=== PATIENT | female | born 1940 | race Caucasian/White ===

== ENCOUNTER → 2019-05-19 15:14 | Outpatient (CLI) | payer MEDICARE, OTHER, SELFPAY ==
--- NOTE | 2019-05-19 15:19 | DI.RAD.S_ITS ---
PROCEDURE: XR CHEST 2V INDICATIONS: Coughing x6 week TECHNIQUE: 2 views of the chest were acquired. COMPARISON: None. FINDINGS: Surgical changes and devices: None. Lungs and pleura: Increased bronchovascular markings and bilateral hilar region are seen with bronchial wall thickening suggestive of reactive airway disease. No focal infiltrate. No pleural effusions or pneumothorax. Mediastinum: Mediastinal contours are normal. Heart size is normal. Bones and chest wall: No suspicious bony abnormalities. Soft tissues appear unremarkable. IMPRESSION: Suggestion of reactive airway disease. No focal infiltrate, pleural effusion or pneumothorax. Dictated by: Messi Cohen M.D. on 05/19/2019 at 16:22 Approved by: Messi Cohen M.D. on 05/19/2019 at 16:23
== END ==
PROVIDERS: Visit Provider Nurse Practitioner
DX: R05 Cough (principal); R06.2 Wheezing
CPT/HCPCS: 71046

== ENCOUNTER → 2020-08-03 12:43 | Outpatient (CLI) | payer MEDICARE, OTHER, SELFPAY ==
[2020-08-03 13:56] LABS: Alanine Aminotransferase 22 IU/L (<35); Albumin 4.3 g/dL (3.5-5.0); Albumin Globulin Ratio 1.3 (1.0-2.8); Alkaline Phosphatase 129 U/L (38-126); Aspartate Aminotransferase 44 IU/L (14-36); BUN Creatinine Ratio 26.5 (6-22); Bilirubin Total 0.9 mg/dL (0.2-1.3); Blood Urea Nitrogen 18 mg/dL (7-17); Calcium 9.7 mg/dL (8.4-10.2); Carbon Dioxide 29 mmol/L (22-32); Chloride 102 mmol/L (98-107); Cholesterol 136 mg/dL (140-199); Estimated Glomerular Filt Rate > 60.0 mL/min (>60); Globulin 3.3 g/dL (1.7-4.1); Glucose 91 mg/dL (80-110); HDL Cholesterol 73 mg/dL (40-60); HEMOLYSIS < 15 (0-50); LDL Cholesterol Calculated 51 mg/dL (<100); Sodium 137 mmol/L (137-145); Total Protein 7.6 g/dL (6.3-8.2); Triglycerides 62 mg/dL (35-150)
== END ==
PROVIDERS: PCP Nurse Practitioner; Referring Provider Nurse Practitioner; Visit Provider Nurse Practitioner
DX: M81.0 Age-related osteoporosis without current pathological fracture (principal); Z78.0 Asymptomatic menopausal state; G45.9 Transient cerebral ischemic attack, unspecified; Z87.81 Personal history of (healed) traumatic fracture; R54 Age-related physical debility; Z79.899 Other long term (current) drug therapy; Z90.722 Acquired absence of ovaries, bilateral; Z87.891 Personal history of nicotine dependence
CPT/HCPCS: 36415; 77080; 80053; 80061

== ENCOUNTER → 2020-08-10 12:42 | Outpatient (CLI) | payer MEDICARE, OTHER, SELFPAY ==
[2020-08-10 13:35] LABS: Alanine Aminotransferase 20 IU/L (<35); Albumin 4.2 g/dL (3.5-5.0); Albumin Globulin Ratio 1.3 (1.0-2.8); Alkaline Phosphatase 140 U/L (38-126); Aspartate Aminotransferase 37 IU/L (14-36); Bilirubin Total 0.5 mg/dL (0.2-1.3); Bilirubin Unconjugated 0.5 mg/dL (0.0-1.1); Globulin 3.3 g/dL (1.7-4.1); HEMOLYSIS < 15 (0-50); Total Protein 7.5 g/dL (6.3-8.2)
[2020-08-11 06:55] LABS: HBsAg Screen Negative (Negative); Hepatitis A Antibody IgM Negative (Negative); Hepatitis B Core Antibody IgM Negative (Negative); Hepatitis C Antibody 0.1 s/co ratio (0.0-0.9)
== END ==
PROVIDERS: PCP Nurse Practitioner; Referring Provider Nurse Practitioner; Visit Provider Nurse Practitioner
DX: R79.89 Other specified abnormal findings of blood chemistry (principal)
CPT/HCPCS: 36415; 80074; 80076

== ENCOUNTER → 2020-10-06 14:16 | Outpatient (CLI) | payer MEDICARE, OTHER, SELFPAY ==
[2020-10-06 15:37] LABS: Appearance Urine UA SL CLOUDY; Bilirubin Urine UA NEGATIVE (NEGATIVE); Color Urine UA YELLOW; Glucose Urine UA NEGATIVE (Negative); Ketones Urine UA NEGATIVE (NEGATIVE); Leukocyte Esterase Urine UA 3+ (NEGATIVE); Nitrite Urine UA POSITIVE (Negative); Occult Blood Urine UA TRACE-LYSED (Negative); Protein Urine UA NEGATIVE (Negative); Specific Gravity Urine UA <=1.005 (1.000-1.035); Urobilinogen Urine UA 0.2 E.U./dL (0.2)
[2020-10-06 15:42] LABS: pH Urine UA 6.5 (4.5-8.0)
[2020-10-06 15:56] LABS: Bacteria Urine Many (>30); Culture Indicated Urine Specimen Cultured; RBC Urine 1-5/HPF (0-5/HPF); Squamous Epithelial Cell Urine 0-1 /HPF (0-5/HPF); WBC Urine 30-100/HPF (0-5/HPF)
== END ==
PROVIDERS: PCP Nurse Practitioner; Referring Provider Nurse Practitioner; Visit Provider Nurse Practitioner
DX: N39.0 Urinary tract infection, site not specified (principal)
CPT/HCPCS: 81001; 87077; 87086; 87186

== ENCOUNTER → 2020-11-02 13:58 | Outpatient (CLI) | payer MEDICARE, OTHER, SELFPAY ==
[2020-11-02 14:10] LABS: RBC Urine None Seen (0-5/HPF)
[2020-11-02 14:27] LABS: Appearance Urine UA CLEAR; Bilirubin Urine UA NEGATIVE (NEGATIVE); Color Urine UA YELLOW; Glucose Urine UA NEGATIVE (Negative); Ketones Urine UA NEGATIVE (NEGATIVE); Leukocyte Esterase Urine UA NEGATIVE (NEGATIVE); Nitrite Urine UA NEGATIVE (Negative); Occult Blood Urine UA NEGATIVE (Negative); Protein Urine UA NEGATIVE (Negative); Specific Gravity Urine UA 1.015 (1.000-1.035); Urobilinogen Urine UA 0.2 E.U./dL (0.2)
[2020-11-02 14:43] LABS: Amorphous Sediment Urine 1+; Bacteria Urine Occasional (0-1); Culture Indicated Urine Cult Not Indicated; Squamous Epithelial Cell Urine 1-5 /HPF (0-5/HPF); WBC Urine 0-1/HPF (0-5/HPF); pH Urine UA 7.5 (4.5-8.0)
== END ==
PROVIDERS: PCP Nurse Practitioner; Referring Provider Nurse Practitioner; Visit Provider Nurse Practitioner
DX: N39.0 Urinary tract infection, site not specified (principal)
CPT/HCPCS: 36415; 81001

== ENCOUNTER 2020-11-28 20:21 | Observation (INO) | payer MEDICARE, OTHER, SELFPAY ==
[2020-11-28] VITALS (7 sets, daily range): BP systolic 134–192; BP diastolic 66–103; PULSE 67–80; RESP 18–32; TEMP 36.4–36.6; O2SAT 93–96; BMI 20.1
--- NOTE | 2020-11-28 20:28 | ED_ITS ---
HPI - Neuro Symptoms/Deficit General Chief Complaint: Weakness Stated Complaint: legs are not working Time Seen by Provider: 11/28/20 20:24 Source: patient and family Mode of arrival: Wheelchair Limitations: no limitations History of Present Illness HPI Narrative: 80-year-old female nonsmoker with history of hyperlipidemia, hypertension and a former TIA presents with her son and a chief complaint of difficulty walking over the course of the day. She states she went to bed in her normal state of health any and woke up that way but noticed this morning her left leg was weak and she almost fell on multiple occasions. She denies associated symptoms such as blurred vision, trouble with speech or numbness or tingling. She states that her symptoms seemed to improve for much of the day but it started flaring up again a few hours ago. She denies any recent injury or trauma. She has no fever or chills. She denies any history of back trouble and denies trouble controlling bowel or bladder. Patient not activated as a code stroke as she is outside of an interventional window for tPA and does not have a high LAMS score to suggest large vessel occlusion. She did have a TIA years ago but states that her symptoms at that time were largely visual Onset (ago): hour(s) Location: left leg Severity: mild Quality: weak Exacerbating factors: none On Anticoagulants: No Associated symptoms: denies other symptoms Treatments Prior to Arrival: none Related Data Home Medications Medication Instructions Recorded Confirmed calcium carb-vit [id number] 1 tab PO DAILY 05/19/19 08/26/20 333 mg-200 unit-133 mg-5 mg tablet calcium carbonate 600 mg (1,500 2 cap PO DAILY cap 05/19/19 08/26/20 mg)-vitamin D3 500 unit capsule vitamin B complex 1 tab PO DAILY 05/19/19 11/28/20 aspirin 81 mg tablet,delayed 81 mg PO .three times per week tab 07/20/20 08/26/20 release cephalexin 500 mg capsule 500 mg PO TID 07/20/20 08/26/20 Previous Rx's Medication Instructions Recorded varicella-zoster glycoE [id number] 0.5 ml IM ONCE #1 each 05/19/19 adj(PF) 50 mcg/0.5 mL IM susp, kit atorvastatin 20 mg tablet 10 mg PO BEDTIME #90 tab 12/29/20 phenazopyridine 100 mg tablet 100 mg PO TID PRN #6 tab 10/06/20 Estriol 1.5mg Vaginal Deja See Rx Instructions .ROUTE 10/07/20 .COMPLEX #90 ea Allergies Allergy/AdvReac Type Severity Reaction Status Date / Time codeine AdvReac Intermediate Nausea Verified 08/26/20 13:05 morphine AdvReac Intermediate Nausea Verified 08/26/20 13:05 Review of Systems Constitutional Constitutional: Denies chills, Denies fatigue, Denies fever(s), Denies frequent falls, Denies lethargy and Denies weakness Eyes Eyes: Denies change in vision, Denies eye discharge, Denies irritation and Denies loss of vision ENT Ears, Nose, Mouth, and Throat: Denies change in voice, Denies dizziness, Denies neck pain, Denies sore throat and Denies throat swelling Cardiovascular Cardiovascular: Denies chest pain, Denies irregular heart rhythm, Denies lightheadedness, Denies palpitations, Denies dyspnea, Denies dyspnea on exertion and Denies orthopnea Respiratory Respiratory: Denies cough, Denies dyspnea, Denies dyspnea on exertion and Denies wheezing Gastrointestinal Gastrointestinal: Denies abdominal pain, Denies change in bowel habits, Denies diarrhea, Denies nausea and Denies vomiting Musculoskeletal Musculoskeletal: Reports abnormal gait, Denies neck pain and Denies numbness Integumentary/Breasts Skin/Breast: Denies pruritus, Denies erythema, Denies rash and Denies wounds Neurologic Neurologic: Reports abnormal gait, Denies behavioral changes, Denies confusion, Denies dizziness, Denies frequent falls, Reports lack of coordination, Reports localized weakness, Denies loss of vision, Denies numbness and Denies weakness Psychiatric Psychiatric: Denies anxiety, Denies behavioral changes, Denies confusion, Denies depression, Denies homicidal ideation and Denies suicidal ideation Endocrine Endocrine: Denies fatigue, Denies flushing and Denies palpitations Hematologic/Lymphatic Hematologic/Lymphatic: Denies easy bruising On Anticoagulants: No Allergic/Immunologic Allergic/Immunologic: Denies urticaria, Denies throat swelling and Denies wheezing Patient History Medical History (Updated 11/28/20 @ 22:46 by LIANA Lopez) Carpal tunnel syndrome (~1999) Chicken pox (~1948) Depression Elevated LFTs Fractures Frequent UTI (~2009) History of fracture History of Mohs micrographic surgery for skin cancer History of urinary incontinence (~2009) Incomplete bladder emptying Left femoral shaft fracture Measles (~1947) Osteoarthritis (~2009) Skin cancer (~1989) Syncope Transient ischemic attack (~2017) Uterine prolapse Venous stasis ulcer Surgical History (Updated 11/28/20 @ 22:46 by LIANA Lopez) Anesthesia Broken femur (~2015) H/O arthroscopic knee surgery H/O umbilical hernia repair History of appendectomy (~1961) History of carpal tunnel release (~1992) History of cholecystectomy (~1961) History of hysterectomy with bilateral oophorectomy History of knee replacement (~2006) History of right breast biopsy History of skin graft Status post repair of nerve Family History Father History of heart disease Mother Mental health problem Brother Drug abuse Family/Other Cerebral aneurysm Social History household members: none Smoking Status: Former smoker Smoking Status: Never smoker Exam Narrative Exam Narrative: GENERAL: [80] year old patient appears stated age. Well- nourished, well-developed patient, in mild distress. GCS 15 HEAD: Atraumatic. Normocephalic. EYES: Pupils equal round and reactive. Extraocular motions intact. No scleral icterus. No injection or drainage. ENT: Nose without bleeding, purulent drainage. Throat without erythema, tonsillar hypertrophy or exudate. Airway patent. NECK: Trachea midline. Non tender CARDIOVASCULAR: Regular rate and rhythm without murmurs, gallops, or rubs. RESPIRATORY: Clear to auscultation. Breath sounds equal bilaterally. No wheezes, rales, or rhonchi. GASTROINTESTINAL: Abdomen soft, non-tender, nondistended. EXTREMITIES: No edema or joint tenderness. BACK: Nontender without deformity or crepitance. No flank tenderness. No saddle anesthesia, bilateral lower extremity reflexes 1+ NEURO: AOx3. SKIN: No rash or erythema of visible areas NIH Stroke Scale 1a. LOC: Patient is alert and keenly responsive (0) 1b. LOC Questions: Patient answers both LOC questions accurately (0) 1c. LOC Commands: Patient performs both tasks correctly (0) 2. Best Gaze: Normal (0) 3. Visual: No visual loss (0) 4. Facial palsy: Normal symmetrical movements (0) 5. Motor arm: No drift (0) 6. Motor leg: No drift (0) 7. Limb ataxia: Absent (0) 8. Sensory: Normal (0) 9. Best language: No aphasia; normal (0) 10. Dysarthria: Normal (0) 11. Extinction and inattention: No abnormality (0) NIHSS: 0 Initial Vital Signs Initial Vital Signs: Vital Signs Temperature 97.5 F L 11/28/20 20:28 Pulse Rate 79 11/28/20 20:28 Respiratory Rate 20 11/28/20 20:28 Blood Pressure 190/80 H 11/28/20 20:28 Pulse Oximetry 95 11/28/20 20:28 Course Orders Ordered: ED Orders 11/28/20 20:28 CT head/brain wo con Stat EKG-12 Lead Stat 11/28/20 20:40 Complete Blood Count AUTO DIFF Stat Comprehensive Metabolic Panel Stat Ethanol (ETOH) Stat Partial Thromboplastin Time Stat Prothrombin Time INR Stat Troponin & CK Cardiac Panel Stat 11/28/20 22:05 COVID19 - ADMIT (MEDICAL OFFICE ASSISTANT swab/PCR) Stat 11/28/20 22:06 COVID19 - ADMIT (MEDICAL OFFICE ASSISTANT swab/PCR) Stat 11/28/20 22:25 Urine Drug Screen, Rapid Stat Acetaminophen (Acetaminophen 325 Mg Tablet) 650 mg PO Q6HR PRN PRN Reason: Fever/Mild Pain (1-3) Al Hydrox/Mg Hydrox/Simethicone (Mag Hydrox/Alum/Simeth 30 Ml Udc) 30 ml PO Q6HR PRN PRN Reason: Dyspepsia Aspirin (Aspirin Ec 81 Mg Tablet) 81 mg PO .three times per week [facility] Atorvastatin Calcium (Atorvastatin 20 Mg Tablet) 10 mg PO BEDTIME [facility] Bisacodyl (Bisacodyl 10 Mg Supp) 10 mg [place] DAILY PRN PRN Reason: Constipation Calcium Carbonate (Calcium Carbonate 500 Mg Tab) 1,000 mg PO Q4HR PRN PRN Reason: Dyspepsia Clopidogrel Bisulfate (Clopidogrel 75 Mg Tablet) 75 mg PO DAILY [facility] Docusate Sodium (Docusate 100 Mg Capsule) 100 mg PO BID PRN PRN Reason: Constipation Enoxaparin Sodium (Enoxaparin 40 Mg/0.4 Ml Syringe) 40 mg SUBCUT DAILY [facility] Sodium Chloride (Normal Saline 0.9%) 1,000 mls @ 50 mls/hr IV CONT JOSE JUAN Naloxone HCl (Naloxone 0.4 Mg/Ml Vial) 0.2 mg IV Q2MIN PRN PRN Reason: Opiate Reversal Ondansetron HCl (Ondansetron 4 Mg/2 Ml Inj) 4 mg IV Q6HR PRN PRN Reason: Nausea And Vomiting Discontinued Medications Aspirin (Aspirin 81 Mg Chew Tab) 324 mg PO NOW ONE Stop: 11/28/20 22:07 Last Admin: 11/28/20 22:13 Dose: 324 mg Documented by: ABBI Sodium Chloride (Normal Saline 0.9%) 1,000 mls @ 150 mls/hr IV CONT JOSE JUAN Last Infusion: 11/28/20 23:18 Dose: 150 mls/hr Documented by: Infusion: 11/28/20 22:46 Dose: 0 mls/hr Documented by: Admin: 11/28/20 21:18 Dose: 150 mls/hr Documented by: ABBI Vital Signs Vital signs: Vital Signs - 8 hr 11/28/20 20:28 11/28/20 20:32 11/28/20 21:16 Temperature 97.5 F L Pulse Rate 79 69 70 Respiratory Rate 20 24 23 Blood Pressure 190/80 H 160/78 H 153/75 H Pulse Oximetry 95 95 93 11/28/20 21:30 11/28/20 22:01 Temperature Pulse Rate 67 72 Respiratory Rate 24 32 H Blood Pressure 134/66 192/86 H Pulse Oximetry 96 95 MDM - Neuro Symptoms/Deficit Lab Data Result diagrams: 11/28/20 20:40 11/28/20 20:40 Labs: Lab Results 11/28/20 11/28/20 11/28/20 Range/Units 20:40 20:40 20:40 WBC 7.1 (4.5-11.0) X10^3/uL RBC 4.89 (4.0-5.2) X10^6/uL Hgb 15.0 (12.0-16.0) g/dL Hct 45.5 (36-46) % MCV 93.0 (80-100) fL MCH 30.6 (26-34) PG MCHC 32.9 (30-36) % RDW 13.3 (11.6-14.8) % Plt Count 223 (150-400) X10^3/uL Neut % (Auto) 50.8 (50-75) % Lymph % (Auto) 36.2 (25-40) % Rabun % (Auto) 8.3 (3-14) % Eos % (Auto) 4.2 H (2-4) % Baso % (Auto) 0.5 (0-2) % Neut # (Auto) 3600 (7164-6661) /uL Lymph # (Auto) 2600 (7931-6097) /uL Rabun # (Auto) 600 (0-900) /uL Eos # (Auto) 300 (0-450) /uL Baso # (Auto) 0 (0-100) /uL PT 11.1 (10.1-12.7) SECONDS INR 1.0 (0.9-1.3) APTT 33 (26.4-36.2) SECONDS Sodium 137 (137-145) mmol/L Potassium 4.9 (3.4-5.1) mmol/L Chloride 104 (98-107) mmol/L Carbon Dioxide 25 (22-32) mmol/L BUN 18 H (7-17) mg/dL Creatinine 0.72 (0.52-1.04) mg/dL Estimated GFR > 60.0 (>60) mL/min BUN/Creatinine Ratio 25.0 H (6-22) Glucose 111 H (80-110) mg/dL Calcium 9.6 (8.4-10.2) mg/dL Total Bilirubin 0.5 (0.2-1.3) mg/dL AST 44 H (14-36) IU/L ALT 20 (<35) IU/L Alkaline Phosphatase 192 H (38-126) U/L Total Creatine Kinase 68 (30-135) U/L CK-MB (CK-2) TNP CK-MB (CK-2) Rel Index TNP Troponin I < 0.012 (0.01-0.034) ng/mL Total Protein 8.4 H (6.3-8.2) g/dL Albumin 4.4 (3.5-5.0) g/dL Globulin 4.0 (1.7-4.1) g/dL Albumin/Globulin Ratio 1.1 (1.0-2.8) Ethyl Alcohol < 10 ( - 10) mg/dL SARS-CoV-2 (PCR) (Negative) 11/28/20 Range/Units 22:05 WBC (4.5-11.0) X10^3/uL RBC (4.0-5.2) X10^6/uL Hgb (12.0-16.0) g/dL Hct (36-46) % MCV (80-100) fL MCH (26-34) PG MCHC (30-36) % RDW (11.6-14.8) % Plt Count (150-400) X10^3/uL Neut % (Auto) (50-75) % Lymph % (Auto) (25-40) % Rabun % (Auto) (3-14) % Eos % (Auto) (2-4) % Baso % (Auto) (0-2) % Neut # (Auto) (2987-3106) /uL Lymph # (Auto) (0156-7611) /uL Rabun # (Auto) (0-900) /uL Eos # (Auto) (0-450) /uL Baso # (Auto) (0-100) /uL PT (10.1-12.7) SECONDS INR (0.9-1.3) APTT (26.4-36.2) SECONDS Sodium (137-145) mmol/L Potassium (3.4-5.1) mmol/L Chloride (98-107) mmol/L Carbon Dioxide (22-32) mmol/L BUN (7-17) mg/dL Creatinine (0.52-1.04) mg/dL Estimated GFR (>60) mL/min BUN/Creatinine Ratio (6-22) Glucose (80-110) mg/dL Calcium (8.4-10.2) mg/dL Total Bilirubin (0.2-1.3) mg/dL AST (14-36) IU/L ALT (<35) IU/L Alkaline Phosphatase (38-126) U/L Total Creatine Kinase (30-135) U/L CK-MB (CK-2) CK-MB (CK-2) Rel Index Troponin I (0.01-0.034) ng/mL Total Protein (6.3-8.2) g/dL Albumin (3.5-5.0) g/dL Globulin (1.7-4.1) g/dL Albumin/Globulin Ratio (1.0-2.8) Ethyl Alcohol ( - 10) mg/dL SARS-CoV-2 (PCR) Negative (Negative) Point of Care Testing Glucose POC [address] scan - head: Radiologist's Impression: [address] [id number] Scan ReportSigned Patient: Himanshu Johnson EMR#: [id number]: [id number]:[id number]/Sex: 80 / FDate of Service: 11/28/20Loc: EDAccession Number: [id number] Procedure: CT head/brain wo con Ordering Provider: Yonny Becerril D.O. PROCEDURE: CT HEAD/BRAIN WO CON INDICATIONS: leg weakness, left arm weak, balance trouble TECHNIQUE: Noncontrast 4.5 mm thick angled axial sections acquired from the foramen magnum to the vertex, with coronal and sagittal reformats. For radiation dose reduction, the following was used: automated exposure control, adjustment of mA and/or kV according to patient size. COMPARISON: None. FINDINGS: Image quality: Excellent. CSF spaces: Basal cisterns are patent. No extra-axial fluid collections. There is mild to moderate cerebral volume loss, with resultant ventricular and sulcal prominence. Brain: No intracranial hemorrhage, mass, or mass effect. There are subcortical, periventricular and deep white matter hypodensities consistent with moderate chronic small vessel ischemic changes. A small indistinct hypodensity is noted in the right thalamus. Lemus-white matter junction appears preserved. There is intracranial internal carotid artery atherosclerosis. Skull and face: Calvarium and visualized facial bones appear intact, without suspicious lesions. Sinuses: Visualized sinuses and mastoids are clear. IMPRESSION: 1. No acute intracranial hemorrhage or mass effect. 2. Small indistinct hypodensity in the right thalamus is nonspecific and the differential includes a small lacunar infarct of indeterminate acuity. 3. Moderate chronic white matter small vessel ischemic changes and mild to moderate cerebral volume loss. Dictated by: Percy Cohen M.D. on 11/28/2020 at 21:26 Approved by: Percy Cohen M.D. on 11/28/2020 at 21:30 Discharge Plan Departure Patient Disposition: Admitted as Observation Clinical Impression: Brain TIA Admit Date/Time: 11/28/20 22:16 Admit Provider: Mukul Bryant
[2020-11-28 20:53] LABS: Add Manual Diff / Slide Review NO; Basophils Absolute Auto 0 /uL (0-100); Basophils Percent Auto 0.5 % (0-2); Eosinophils Absolute Auto 300 /uL (0-450); Eosinophils Percent Auto 4.2 % (2-4); Hematocrit 45.5 % (36-46); Lymphocytes Absolute Auto 2600 /uL (1100-4500); Lymphocytes Percent Auto 36.2 % (25-40); Mean Corpuscular HGB Conc 32.9 % (30-36); Mean Corpuscular Hemoglobin 30.6 PG (26-34); Monocytes Absolute Auto 600 /uL (0-900); Monocytes Percent Auto 8.3 % (3-14); Neutrophils Absolute Auto 3600 /uL (1500-7000); Neutrophils Percent Auto 50.8 % (50-75); Platelet Count 223 X10^3/uL (150-400); Red Blood Cell Count 4.89 X10^6/uL (4.0-5.2); Red Cell Distribution Width 13.3 % (11.6-14.8); White Blood Cell Count 7.1 X10^3/uL (4.5-11.0)
[2020-11-28 20:57] LABS: Prothrombin Time 11.1 SECONDS (10.1-12.7)
[2020-11-28 21:00] LABS: PTT Partial Thromboplastin Tim 33 SECONDS (26.4-36.2)
[2020-11-28 21:02] LABS: Alanine Aminotransferase 20 IU/L (<35); Albumin 4.4 g/dL (3.5-5.0); Albumin Globulin Ratio 1.1 (1.0-2.8); Alkaline Phosphatase 192 U/L (38-126); Aspartate Aminotransferase 44 IU/L (14-36); Bilirubin Total 0.5 mg/dL (0.2-1.3); Blood Urea Nitrogen 18 mg/dL (7-17); Calcium 9.6 mg/dL (8.4-10.2); Carbon Dioxide 25 mmol/L (22-32); Chloride 104 mmol/L (98-107); Creatine Kinase 68 U/L (30-135); Estimated Glomerular Filt Rate > 60.0 mL/min (>60); Ethanol (ETOH) < 10 mg/dL; Glucose 111 mg/dL (80-110); Sodium 137 mmol/L (137-145); Total Protein 8.4 g/dL (6.3-8.2)
[2020-11-28 21:13] LABS: Troponin I < 0.012 ng/mL (0.01-0.034)
[2020-11-28] MEDS: SODIUM CHLORIDE 0.9% 1,000 ML 150 ML IV (21:18)
[2020-11-28 21:26] LABS: HEMOLYSIS 66 (0-50)
[2020-11-28 21:29] LABS: Potassium 4.9 mmol/L (3.4-5.1)
[2020-11-28] MEDS: ASPIRIN 81 MG CHEW TAB 324 MG PO (22:13)
[2020-11-28 22:40] LABS: UR Morphine/Opiate cutoff 300 Negative (Negative); Ur Creatinine Normal (Normal); Ur Specific Gravity Normal (Normal); Urine Amphetamines Negative (Negative); Urine Barbiturates Negative (Negative); Urine Benzodiazepines Negative (Negative); Urine Cocaine Negative (Negative); Urine MDMA Negative (Negative); Urine Methadone Negative (Negative); Urine Methamphetamines Negative (Negative); Urine Oxycodone Negative (Negative); Urine Phencyclidine Negative (Negative); Urine Tetrahydrocannabinol Positive (Negative); Urine Tricyclic Antidepressant Negative (Negative); Urine pH Normal (Normal)
--- NOTE | 2020-11-28 22:44 | P.HP_ITS ---
History of Present Illness History of Present Illness Date Patient Seen: 11/28/20 Chief complaint: legs are not working Narrative: Ms. Himanshu Johnson is an 80-year-old female with a past medical history significant for hypertension, hyperlipidemia, prior TIA and history peripheral neuropathy who presents to the ER with complaints of difficulty walking. Patient reports waking at 6:00 a.m. this morning with left leg weakness. Her last known normal was at bedtime yesterday. She describes her symptoms waxing and waning and has associated balance difficulty was found to have difficulty si tting up in the emergency department which has completely resolved. She denies headaches or dizziness, no visual changes, no difficulty chewing or swallowing, no speech difficulties, nausea vomiting. The patient did have a decrease in her atorvastatin dose from 20 mg to 10 mg several months ago. She was started on atorvastatin empirically related to prior TIA stating that she never was found to have elevated cholesterol. She additionally has been found to have elevated liver enzymes and a trial lowering of the statin dose was an attempt to evaluate its role. The patient has been on aspirin daily she states she takes aspirin 81 mg 3 days per week. She has had previous bleeding issues with bruising and epistaxis with the last episode 2 months ago. Patient has had no recent complaints of cold or flu symptoms. Has had no known COVID-19 exposures. She denies fevers or chills, nasal congestion or sore throat. She denies neck or back pain. She reports no complaints of chest pain or palpitations, shortness of breath cough or wheezing. She has had no epigastric or abdominal pain and denies changes in bowel habits. She has a history of irritable bladder and urinary incontinence. Patient is typically ambulatory without assistive devices at baseline. Upon arrival to the ER the patient has a temperature of 97.5, heart rate of 79, blood pressure 190/80, respirations of 20 saturating 95% on room air. A CT of the head stroke protocols obtained which finds no acute findings however does find small instinct hypodensity in the right thalamus that is nonspecific, chronic white matter small-vessel ischemic changes with gwca-su-olgxahed cerebral volume loss. Twelve lead EKG finds sinus rhythm with occasional PAC at a rate of 64, no block, ST or T-wave changes, Q-waves are noted in V1 through V3 consistent with anteroseptal infarct. On laboratory analysis the patient has w karis count of 7.1, hemoglobin of 15.0 and a hematocrit of 45.5 and platelets of 223. Coagulation studies are within normal range. Her lipid lytes within normal range she has a BUN of 18 and creatinine 0.72. Her nonfasting glucose is 111. She has a total bilirubin of 0.5, AST of 44, ALT of 20 and alkaline phosphate is 192. Total CK is 68 and troponin is negative at less than 0.012. In the ER the patient's administered aspirin 324 mg and started on normal saline infusion. The patient passes swallow screen in the ER. The patient is outside the window for tPA and is not a candidate for interventional procedure. The patient is admitted to the hospitalist service for further evaluation and workup for TIA. Patient History Medical History (Updated 11/28/20 @ 22:46 by LIANA Lopez) Carpal tunnel syndrome (~1999) Chicken pox (~1947) Depression Elevated LFTs Fractures Frequent UTI (~2009) History of fracture History of Mohs micrographic surgery for skin cancer History of urinary incontinence (~2009) Incomplete bladder emptying Left femoral shaft fracture Measles (~1947) Osteoarthritis (~2009) Skin cancer (~1989) Syncope Transient ischemic attack (~2017) Uterine prolapse Venous stasis ulcer Surgical History (Updated 11/28/20 @ 22:46 by LIANA Lopez) Anesthesia Broken femur (~2015) H/O arthroscopic knee surgery H/O umbilical hernia repair History of appendectomy (~1961) History of carpal tunnel release (~1992) History of cholecystectomy (~1961) History of hysterectomy with bilateral oophorectomy History of knee replacement (~2006) History of right breast biopsy History of skin graft Status post repair of nerve Family & Social History Family History Father History of heart disease Mother Mental health problem Brother Drug abuse Family/Other Cerebral aneurysm Safety & Behavioral: Feels Safe in Current Yes Environment Tobacco & Substance use: Smoking Status Never smoker alcohol intake frequency 0-2 drinks per day Substance Use Type does not use Meds Home Medications and Allergies Home Medications Medication Instructions Recorded Confirmed Type calcium carb-vit X1-sbopuwjrw-cujo 1 tab PO DAILY 05/19/19 08/26/20 History 333 mg-200 unit-133 mg-5 mg tablet calcium carbonate 600 mg (1,500 2 cap PO DAILY cap 05/19/19 08/26/20 History mg)-vitamin D3 500 unit capsule varicella-zoster glycoE [id number] 0.5 ml IM ONCE #1 each 05/19/19 08/26/20 Rx adj(PF) 50 mcg/0.5 mL IM susp, kit vitamin B complex 1 tab PO DAILY 05/19/19 11/28/20 History aspirin 81 mg tablet,delayed 81 mg PO .three times per week tab 07/20/20 08/26/20 History release cephalexin 500 mg capsule 500 mg PO TID 07/20/20 08/26/20 History atorvastatin 20 mg tablet 10 mg PO BEDTIME #90 tab 08/24/20 08/26/20 Rx phenazopyridine 100 mg tablet 100 mg PO TID PRN #6 tab 10/06/20 Rx Estriol 1.5mg Vaginal Deja See Rx Instructions .ROUTE 10/07/20 Rx .COMPLEX #90 ea Allergies Allergy/AdvReac Type Severity Reaction Status Date / Time codeine AdvReac Intermediate Nausea Verified 08/26/20 13:05 morphine AdvReac Intermediate Nausea Verified 08/26/20 13:05 Review of Systems Review of Systems ROS: Yes All systems reviewed with the patient and are negative except as otherwise documented Exam Vital Signs (past 8 hours): - 11/28/20 20:28 11/28/20 20:32 11/28/20 21:16 Temperature 97.5 F L Pulse Rate 79 69 70 Pulse Rate [Orthostatic Lying] Pulse Rate [Orthostatic Sitting] Pulse Rate [Orthostatic Standing] Respiratory Rate 20 24 23 Blood Pressure 190/80 H 160/78 H 153/75 H Blood Pressure [Orthostatic Lying] Blood Pressure [Orthostatic Sitting] Blood Pressure [Orthostatic Standing] Pulse Oximetry 95 95 93 11/28/20 21:30 11/28/20 22:01 11/28/20 22:34 Temperature Pulse Rate 67 72 Pulse Rate [Orthostatic Lying] 67 Pulse Rate [Orthostatic Sitting] 67 Pulse Rate [Orthostatic Standing] 80 Respiratory Rate 24 32 H Blood Pressure 134/66 192/86 H Blood Pressure [Orthostatic Lying] 157/74 H Blood Pressure [Orthostatic Sitting] 178/83 H Blood Pressure [Orthostatic Standing] 174/103 H Pulse Oximetry 96 95 Oxygen Delivery Method Room Air Narrative Exam Narrative: GENERAL APPEARANCE: well developed, thin elderly woman with a BMI of 20.9 who is briskly interactive, in no acute distress. HEENT: Symmetrical facies, no ptosis, PERRLA, conjunctiva clear, EOMs intact without nystagmus, no sinus tenderness to percussion, no rhinorrhea or epistaxis, mucous membranes are moist and pink without lesions or exudate. NECK/THYROID: neck supple, no JVD, no carotid bruit, no thyromegaly, trachea midline. LYMPH NODES: no cervical or supraclavicular lymphadenopathy. SKIN: [place], warm and dry, no visible rashes, bilateral lower extremity venous stasis skin changes. HEART: regular rate and rhythm, S1-S2, no murmur, no rubs or gallops, 2+ dorsalis pedis pulses, no edema. LUNGS: Breath sounds with scattered end-expiratory wheezing most prominent in the right base, no coarseness or crackles, no cough present. CHEST: Symmetrical movement, no accessory muscle use, good tidal volume. ABDOMEN: Soft, no distention, no abdominal tenderness, no organomegaly, no fl ank or suprapubic tenderness, active bowel tones. BACK: No axial instability, normal curvature, nontender to palpation, no CVA tenderness on percussion. EXTREMITIES: moves all extremities, strength is 5/5 and symmetrical, no deformities or joint effusions, no cyanosis or clubbing. NEUROLOGIC: AAO x4, no aphasia or dysphagia, cranial nerves II-XII grossly intact, decreased sensation fingers and toes, no extremity drift or ataxia, hearing grossly normal to speech. PSYCH: Good judgment, linear thought process, cooperative, appropriate with stable behavior. Objective Labs Result Diagrams: 11/28/20 20:40 11/28/20 20:40 Labs: Laboratory Results - last 24 hr 11/28/20 11/28/20 11/28/20 20:40 20:40 20:40 WBC 7.1 RBC 4.89 Hgb 15.0 Hct 45.5 MCV 93.0 MCH 30.6 MCHC 32.9 RDW 13.3 Plt Count 223 Neut % (Auto) 50.8 Lymph % (Auto) 36.2 [place] % (Auto) 8.3 Eos % (Auto) 4.2 H Baso % (Auto) 0.5 Neut # (Auto) 3600 Lymph # (Auto) 2600 [place] # (Auto) 600 Eos # (Auto) 300 Baso # (Auto) 0 PT 11.1 INR 1.0 APTT 33 Sodium 137 Potassium 4.9 Chloride 104 Carbon Dioxide 25 BUN 18 H Creatinine 0.72 Estimated GFR > 60.0 BUN/Creatinine Ratio 25.0 H Glucose 111 H Calcium 9.6 Total Bilirubin 0.5 AST 44 H ALT 20 Alkaline Phosphatase 192 H Total Creatine Kinase 68 CK-MB (CK-2) TNP CK-MB (CK-2) Rel Index TNP Troponin I < 0.012 Total Protein 8.4 H Albumin 4.4 Globulin 4.0 Albumin/Globulin Ratio 1.1 U Opiates 300ng/mL cut Ur Oxycodone Screen Urine Methadone Screen Ur Barbiturates Screen U Tricyclic Antidepress Ur Phencyclidine Scrn Ur Amphetamines Screen U Methamphetamines Scrn Ur MDMA Scrn (Ecstasy) U Benzodiazepines Scrn Urine Cocaine Screen U Marijuana (THC) Screen Ethyl Alcohol < 10 11/28/20 22:25 WBC RBC Hgb Hct MCV MCH MCHC RDW Plt Count Neut % (Auto) Lymph % (Auto) [place] % (Auto) Eos % (Auto) Baso % (Auto) Neut # (Auto) Lymph # (Auto) [place] # (Auto) Eos # (Auto) Baso # (Auto) PT INR APTT Sodium Potassium Chloride Carbon Dioxide BUN Creatinine Estimated GFR BUN/Creatinine Ratio Glucose Calcium Total Bilirubin AST ALT Alkaline Phosphatase Total Creatine Kinase CK-MB (CK-2) CK-MB (CK-2) Rel Index Troponin I Total Protein Albumin Globulin Albumin/Globulin Ratio U Opiates 300ng/mL cut Negative Ur Oxycodone Screen Negative Urine Methadone Screen Negative Ur Barbiturates Screen Negative U Tricyclic Antidepress Negative Ur Phencyclidine Scrn Negative Ur Amphetamines Screen Negative U Methamphetamines Scrn Negative Ur MDMA Scrn (Ecstasy) Negative U Benzodiazepines Scrn Negative Urine Cocaine Screen Negative U Marijuana (THC) Screen Positive H Ethyl Alcohol Assessment & Plan Assessment & Plan narrative: This patient is an 80-year-old female with a past medical history significant for hypertension, hyperlipidemia, prior TIA and history peripheral neuropathy who presents to the ER with complaints of difficulty walking. Her last known normal was at bedtime yesterday. She is outside the window for tPA it is not a candidate for interventional treatment She has risk factors of prior TIA however that visual manifestations, hypertension and hyperlipidemia. Her symptoms had resolved in the emergency department. 1. Transitory ischemic attack, acute, present on admission, active -NIH score: 0. -head CT identifies a small indistinct hypodensity in the right thalamus that is nonspecific. -laboratory findings are noncontributory with no indication of infection or electrolyte abnormalities. Twelve lead EKG shows sinus rhythm with PACs at a rate of 64 with Q-waves in V1 through 3 consistent with antral septal infarct. -the patient received aspirin 324 mg in the emergency department, patient has been taking aspirin 81 mg 3 times weekly, will increase Aspirin to 81 mg daily prior to initiation of DAPT due to prior complications of multiple epistaxis. -ordered lipid panel, TSH with reflex T4 and hemoglobin A1c for risk stratification. -ordered MRI stroke protocol. -ordered echocardiogram. -requested PT, OT and ST to consult, evaluate and treat. -nursing orders for NIH stroke scale every shift and neuro checks every 2 hours. 2. Hypertension, uncontrolled, present on admission, active. -on presentation the ER the patient is significantly hypertensive with blood pressure 190/80 without complaints of chest pain or shortness of breath. -she has a history of hypertension though does not routinely take antihypertensives. -will allow for permissive hypertension tonight and ordered losartan 25 mg daily starting tomorrow. 3. Hyperlipidemia, chronic, stable. -patient has been been on atorvastatin 20 mg daily until recently dose was dec reased 10 mg daily related to elevated liver enzymes however LFTs have demonstrated no improvement with decreased dose for 4 months. -the patient took her atorvastatin this evening 10 mg order an additional atorvastatin 10 mg tonight and then atorvastatin 20 mg daily. -will order lipid panel. 4. Elevated LFTs, chronic, stable -on initial labs patient has a bilirubin is 0.5, AST slightly elevated at 44, ALT of 20 and alkaline phosphatase elevated 192. -patient has been previously evaluated and ruled out for hepatitis per primary care documentation. The patient has refused ultrasound for evaluation for probable hepatic steatosis. -the patient is atorvastatin was decreased related to consideration as a source of elevation to 10 mg daily without appreciable change on lab re-evaluation. VTE prophylaxis: Enoxaparin IV fluid: Normal saline 50 cc/hour. Diet: Heart healthy Code status: Patient states wish to be FULL CODE but wishes to have no prolonged life support overriding POLST dated 08/24/2020, patient designates her son Sher as primary decision maker or his Gianna as alternate. The patient is admitted to the hospital due to the significance of her symptoms requiring further evaluation and monitoring. The patient is admitted to the hospital as observation status with expected length of stay to be less than 2 midnights. COVID-19 COVID-19 status: Negative Result date/Date tested (Pos, Neg/Pending): 11/28/20 Scores GCS [place] coma scale eye opening: Spontaneous Karime coma scale verbal response: Orientated Karime coma scale motor response: Obey commands Karime coma scale total score: 15 NIHSS Level of Conciousness: Alert, keenly responsive Ask month/age: Answers both questions correctly. Open/close eyes, close hand: Performs both tasks correctly Best gaze horizontal: Normal Visual lars[place]: No visual loss Facial palsy: Normal symetrical movement Left arm drift: No drift for full 10 sec Right arm drift: No drift for full 10 sec Left leg drift: No drift for full 5 sec Right leg drift: No drift for full 5 sec Limb ataxia: Absent Sensory on face/arms/legs: Normal, no sensory loss Best language: No aphasia, normal Dysarthria: Normal Extinction or inattention: No abnormality Total NIH Stroke scale score: 0 CHADS-VASc Congestive heart failure: no Hypertension: yes Age 75 years or older: yes Diabetes mellitus: no Stroke, TIA, or TE: yes Vascular disease: no Age 65 to 74 years: yes Sex category (female): Female CHADS-VASc Score: 7
[2020-11-28 23:03] LABS: COVID19 - ADMIT (NP swab/PCR) Negative (Negative)
--- NOTE | 2020-11-28 23:43 | DI.ECHO.S_ITS ---
[facility]---------+ [facility] +---------+ : : [address] [address] : : : : [id number] : : : : Phone: [phone]+ Echocardiogram Report + + :Name: EDVIN FERNANDEZ Study Date: 11/29/2020 Height: 65 in : :[facility] ReadingLocation: Weight: 125 lb : : Gender: Female BSA: 1.6 m2 : :: 1940 Age: 80 yrs BP: 161/77 mmHg: :Reason For Study: TIA : :Ordering Physician: JORDAN, : :ABRIL Performed By: Jennifer Johansen : :Referring: ABRIL ORTEGA : + + Interpretation Summary Normal left ventricle size with ejection fraction 60-65%. Mildly dilated left atrium. Mild aortic valve sclerosis. Mild aortic regurgitation. Mild mitral annular calcification. Mild mitral regurgitation. Moderate tricuspid regurgitation. The right ventricular systolic pressure is estimated to be at least 44 mmHg based on an estimated right atrial pressure of 8 mm Hg. The ascending aorta is mildly enlarged. Procedure: A two-dimensional transthoracic echocardiogram with color flow and Doppler was performed. The study quality was technically adequate. There is no prior echocardiogram noted for this patient. The patient was in sinus rhythm with heart rates between 54-72 bpm during the exam. Left Ventricle: The left ventricle is normal in size and wall thickness. The ejection fraction is estimated to be 60-65%. There are no focal wall motion abnormalities. Diastolic parameters suggest probable normal left ventricular diastolic function and normal filling pressures. Right Ventricle: The right ventricle is normal in size and function. Atria: The left atrium is mildly dilated. Right atrial size is normal. There is no Doppler evidence for an interatrial shunt. Mitral Valve: The mitral valve is normal in structure and function. There is mild mitral annular calcification. There is mild mitral regurgitation. Aortic Valve: The aortic valve is trileaflet. The aortic valve opens well. There is mild aortic valve sclerosis. There is no aortic valve stenosis. There is mild aortic regurgitation. Tricuspid Valve: The tricuspid valve leaflets are thin and pliable. There is moderate tricuspid regurgitation. The right ventricular systolic pressure is estimated to be at least 44 mmHg based on an estimated right atrial pressure of 8 mm Hg. Pulmonic Valve: The pulmonic valve is not well seen, but is grossly normal. There is trace pulmonic regurgitation. Great Vessels: The aortic root is normal size. The ascending aorta is mildly enlarged. The IVC is dilated (diameter is greater than 2.1 cm) yet it collapses greater than 50% with a sniff. This suggests a right atrial pressure of 8 mm Hg. Pericardium/ Pleura There is no pericardial effusion. There is no pleural effusion. MMode/2D Measurements & Calculations LVIDd: 4.4 cm LVOT diam: 2.0 cm LVIDs: 3.1 cm Ao root diam: 2.9 cm FS: 29.1 % asc Aorta Diam: 3.6 cm EPSS: 0.77 cm Ao Arch Diam (Prox Trans): 2.5 cm IVSd: 0.92 cm LVPWd: 0.89 cm LV schaeffer. diameter/BSA (cm/m^2): 2.7 LV sys. diameter/BSA (cm/m^2): 1.9 LA A2 area: 17.6 cm2 RA long axis: 5.0 cm LA A4 area: 20.0 cm2 RA area: 17.4 cm2 LA length (vol): 5.4 cm RA vol: 51.2 ml LA vol: 55.6 ml RA : 31.6 ml/m2 LA vol index: 34.3 ml/m2 IVC diam: 2.1 cm RVD1 (basal): 3.1 cm TAPSE: 2.2 cm Doppler Measurements & Calculations Ao V2 max: 110.2 cm/sec AI P1/2t: 595.7 msec Ao V2 mean: 75.1 cm/sec AI dec slope: 210.3 cm/sec2 Ao max P.9 mmHg Ao mean P.5 mmHg Ao V2 VTI: 26.3 cm MV E max aldo: 69.4 cm/sec TR max aldo: 300.7 cm/sec MV A max aldo: 63.5 cm/sec TR max P.2 mmHg MV E/A: 1.1 PA V2 max: 69.5 cm/sec Med Peak E' Aldo: 6.1 cm/sec PA V2 mean: 49.9 cm/sec E/E' med: 11.5 PA mean P.1 mmHg Lat Peak E' Aldo: 8.2 cm/sec PA pr(Accel): 29.3 mmHg E/E' lat: 8.4 E/e' average: 9.9 MV dec time: 0.16 sec Electronically signed by: Carlita Rasheed on Reading Physician:11/29/2020 12:45 PM
--- NOTE | 2020-11-28 23:43 | DI.MRI.S_ITS ---
PROCEDURE: MR STROKE Pre- and post-contrast brain MRI, non-contrast brain MR angiogram, pre- and postcontrast neck MR angiogram INDICATIONS: Ataxia, rule out TIA TECHNIQUE: Brain: Noncontrast axial T1 spin echo, axial T2 fast spin echo, sagittal and axial FLAIR, coronal T2 fast spin echo, axial gradient echo, axial diffusion and ADC through the brain. After the administration of contrast, axial 3D VIBE of the cranial vasculature and brain. Brain MRA: Non-contrast 3-D time of flight MR angiogram, with multiple mdehblo-hjggypgmp-uupecqnejq (MIP) reformats performed. Neck MRA: Axial and sagittal TruFISP through the neck. Coronal dynamic MR angiogram during administration of contrast in the arterial and venous phases, with 3-dimenstional gbzxlyy-ajovhorpi-kkianiqzmo (MIP) reformats constructed from subtraction images. COMPARISON: [facility], CT, CT HEAD/BRAIN WO CON, 11/28/2020, 20:55. FINDINGS: Image quality: Excellent. BRAIN: CSF spaces: Ventricles are normal in size and shape. Basal cisterns are patent. No extra-axial fluid collections. Brain: No intracranial bleeds or mass effects. There is moderate cerebral volume loss. There are foci of T2 hyperintensity in periventricular and subcortical white matter are noted. T2 hyperintensity is also seen marti. Diffusion weighted images show no acute ischemic insults. Brainstem appears normal. Normal intravascular flow voids are present. No abnormal intracranial enhancement. Skull and face: Calvarial marrow signal is normal. Orbits appear normal. Sinuses: Sinuses and mastoids are clear. BRAIN MR ANGIOGRAM: Anterior circulation: Intracranial internal carotid arteries are normal in size and enhancement. The flow within the paired anterior cerebral arteries is normal and symmetric. The flow within the middle cerebral arteries is normal and symmetric. The anterior communicating artery is seen. No stenoses, occlusions, or aneurysms. Posterior circulation: The visualized portions of the vertebral arteries demonstrate normal caliber, and join to form a normal appearing basilar artery. The flow within the posterior cerebral arteries is normal and symmetric. No stenoses, occlusions, or aneurysms. NECK MR ANGIOGRAM: Carotids: Great vessels demonstrate a conventional anatomy as they arise from the aortic arch. The origins of the common carotid arteries appear patent. The calibers and courses of both common carotid arteries are normal. Mild narrowing at the carotid bifurcation regions bilaterally. The internal carotid arteries demonstrate normal course and caliber. Posterior circulation: The origins of the vertebral arteries appear patent. More superior portions of both vertebral arteries demonstrate normal course and caliber, and join to form a normal appearing basilar artery. Miscellaneous: Subclavian arteries appear patent. Pre-contrast images through the neck show no soft tissue abnormalities. Degenerative changes in cervical spine. IMPRESSION: BRAIN MRI: 1. No acute intracranial abnormalities. 2. Foci of T2 hyperintensity in periventricular and subcortical white matter may be secondary to a combination of chronic small vessel ischemia and a demyelinating process such as multiple sclerosis. 3. T2 hyperintensity in the marti could be secondary to chronic small vessel ischemic change versus osmotic pontine myelinosis. Recommend clinical correlation. 4. Moderate volume loss. BRAIN MR ANGIOGRAM: No high-grade stenosis or occlusion in anterior or posterior circulations. NECK MR ANGIOGRAM: 1. No hemodynamic significant stenosis in cervical carotid arteries or vertebral arteries bilaterally. Dictated by: Vickie Weaver M.D. on 11/29/2020 at 9:26 Approved by: Vickie Weaver M.D. on 11/29/2020 at 9:40
[2020-11-28 23:53] LABS: Magnesium 2.4 mg/dL (1.6-2.3)
[2020-11-28 23:56] LABS: Hemoglobin A1C% w Est Avg Glu 5.7 % (4.0-6.0)
[2020-11-29 00:11] VITALS: BP 158/83; PULSE 60; RESP 19; TEMP 36.2; O2SAT 94
[2020-11-29] MEDS: ATORVASTATIN 20 MG TABLET 10 MG PO (00:36)
[2020-11-29] MEDS: SODIUM CHLORIDE 0.9% 1,000 ML 50 ML IV (00:36)
[2020-11-29 03:17] VITALS: BMI 20.9
[2020-11-29 04:30] VITALS: BP 143/91; PULSE 69; RESP 20; TEMP 36.4; O2SAT 93
[2020-11-29 05:21] LABS: Add Manual Diff / Slide Review NO; Basophils Absolute Auto 0 /uL (0-100); Basophils Percent Auto 0.6 % (0-2); Eosinophils Absolute Auto 200 /uL (0-450); Eosinophils Percent Auto 3.7 % (2-4); Hematocrit 39.1 % (36-46); Hemoglobin 12.8 g/dL (12.0-16.0); Lymphocytes Absolute Auto 2000 /uL (1100-4500); Lymphocytes Percent Auto 32.3 % (25-40); Mean Corpuscular HGB Conc 32.8 % (30-36); Mean Corpuscular Hemoglobin 30.6 PG (26-34); Mean Corpuscular Volume 93.3 fL (80-100); Monocytes Absolute Auto 500 /uL (0-900); Monocytes Percent Auto 8.7 % (3-14); Neutrophils Absolute Auto 3400 /uL (1500-7000); Neutrophils Percent Auto 54.7 % (50-75); Platelet Count 189 X10^3/uL (150-400); Red Blood Cell Count 4.19 X10^6/uL (4.0-5.2); Red Cell Distribution Width 13.3 % (11.6-14.8); White Blood Cell Count 6.1 X10^3/uL (4.5-11.0)
[2020-11-29 05:29] LABS: Alanine Aminotransferase 14 IU/L (<35); Albumin 3.1 g/dL (3.5-5.0); Alkaline Phosphatase 153 U/L (38-126); Aspartate Aminotransferase 27 IU/L (14-36); BUN Creatinine Ratio 28.8 (6-22); Bilirubin Total 0.2 mg/dL (0.2-1.3); Blood Urea Nitrogen 17 mg/dL (7-17); Calcium 8.7 mg/dL (8.4-10.2); Carbon Dioxide 25 mmol/L (22-32); Chloride 110 mmol/L (98-107); Cholesterol 113 mg/dL (140-199); Estimated Glomerular Filt Rate > 60.0 mL/min (>60); Glucose 102 mg/dL (80-110); HDL Cholesterol 58 mg/dL (40-60); HEMOLYSIS < 15 (0-50); LDL Cholesterol Calculated 40 mg/dL (<100); Sodium 138 mmol/L (137-145); Total Protein 6.1 g/dL (6.3-8.2); Triglycerides 77 mg/dL (35-150)
[2020-11-29 06:19] LABS: TSH w/ Reflex to FT4 4.06 uIU/mL (0.47-4.68)
--- NOTE | 2020-11-29 07:23 | PC.NURSE ---
Physician Scientist Note-Patient has been A/Ox4, NIH = 0, SB/SR, VSS, RA SpO2 >95%, NS @ 50ml/hr, denies pain. Up to BSC with SBA frequently, uses call light appropriately.
[2020-11-29 08:00] VITALS: BP 177/82; PULSE 57; RESP 21; TEMP 36.3; O2SAT 95
[2020-11-29] MEDS: LOSARTAN 25 MG TABLET PO (09:17)
[2020-11-29] MEDS: ASPIRIN EC 81 MG TABLET PO (09:17)
[2020-11-29] MEDS: ENOXAPARIN 40 MG/0.4 ML SYRINGE SUBCUT (09:17)
--- NOTE | 2020-11-29 09:30 | PT.IIE ---
Surgical History (Last Updated 11/28/20 @ 22:46 by LIANA Lopez) Anesthesia Broken femur (~2015) H/O arthroscopic knee surgery H/O umbilical hernia repair History of appendectomy (~1961) History of carpal tunnel release (~1992) History of cholecystectomy (~1961) History of hysterectomy with bilateral oophorectomy History of knee replacement (~2006) History of right breast biopsy History of skin graft Status post repair of nerve Medical History (Last Updated 11/28/20 @ 22:46 by LIANA Lopez) Carpal tunnel syndrome (~1999) Chicken pox (~1947) Depression Elevated LFTs Fractures Frequent UTI (~2009) History of fracture History of Mohs micrographic surgery for skin cancer History of urinary incontinence (~2009) Incomplete bladder emptying Left femoral shaft fracture Measles (~1947) Osteoarthritis (~2009) Skin cancer (~1989) Syncope Transient ischemic attack (~2017) Uterine prolapse Venous stasis ulcer Physical Therapy Inpatient Evaluation/Re-Eval M1 PT/OT-IP Prior Functional Status Start: 11/29/20 08:44 Freq: NEEDED Status: Active Protocol: Document 11/29/20 09:30 AW (Rec: 11/29/20 10:59 AW [id number]) Medical Review Prior Functional Status Medical History Reviewed Yes Communication WNL. Pt is an effective verbal communicator. Mobility and Gait Pt reports independent mobility without AD. She walks up to 1 mile daily, frequently on hills at [place]. Pt has had one injurious fall in the past resulting in hip fracture. Activities of Daily Living and IADL's Independent with all ADL and IADL's. Pt drives, manages her own finances. Social History Household Members none Living Arrangements House Number of Floors (Floors) One Floor Number of Stairs To Enter/Railing? 2-3 platform steps with unilateral rail Home Environment High Toilet,Walk in Shower, Bidet Home Equipment Front Wheel Walker,Straight Cane,Hand Held Shower,Grab Bars In Shower Employment Status Retired Additional Social History Comment Pt states there is a shelf on the left side as she sits on the toilet. Pt lives alone with her cat. Her son and daughter in law live next door. They both work multimedia coordinator but check in on her frequently. M2 PT-IP Current Condition Start: 11/29/20 08:44 Freq: NEEDED Status: Active Protocol: Document 11/29/20 09:30 AW (Rec: 11/29/20 10:59 AW [id number]) Physical Therapy Current Condition Current Condition Evaluation Date 11/29/20 Treatment Diagnosis TIA vs CVA; impaired dynamic balance Onset Date 11/28/20 M3 PT-IP Subjective Start: 11/29/20 08:44 Freq: NEEDED Status: Active Protocol: Document 11/29/20 09:30 AW (Rec: 11/29/20 10:59 AW [id number]) Subjective Physical Therapy Visit Type Type Initial Evaluation Visit Start Time 09:07 Visit Stop Time 09:30 Total Visit Minutes [address] head: 1. No acute intracranial hemorrhage or mass effect. 2. Small indistinct hypodensity in the right thalamus is nonspecific and the differential includes a small lacunar infarct of indeterminate acuity. 3. Moderate chronic white matter small vessel ischemic changes and mild to moderate cerebral volume loss. MRI brain: 1. No acute intracranial abnormalities. 2. Foci of T2 hyperintensity in periventricular and subcortical white matter may be secondary to a combination of chronic small vessel ischemia and a demyelinating process such as multiple sclerosis. 3. T2 hyperintensity in the marti could be secondary to chronic small vessel ischemic change versus osmotic pontine myelinosis. Recommend clinical correlation. 4. Moderate volume loss. Number of BILL OF LADING CLERK Visits 0 Physical Therapy Visit Comments Patient Comments Pt is willing to participate with PT. Therapy Pain Assessment Pain When Pain Assessed During Mobility Pain Present Pain Present Denied Pain M4 PT-IP Mobility and Gait Start: 11/29/20 08:44 Freq: NEEDED Status: Active Protocol: Document 11/29/20 09:30 AW (Rec: 11/29/20 10:59 AW [id number]) PT-Bed Mobility Assessment Supine to Sit Supine to Sit Independent Sit to Supine Sit to Supine Independent PT-Transfer Assessment Sit to and From Stand Sit to and from Stand Independent Equipment Transfer Assistive Device None,Gait Belt Orthotic/Prosthetic Devices or Brace: No Transfers Transfer Destination Bed,Chair,Toilet Transfer Technique Stand Step Pivot Transfer Ability Level of Assist Independent Comments Mobility Comments Pt was sitting up on the chair as PT arrived. She stood from the chair and transferred to the bed, demonstrating bed mobility independently. She then ambulated to the bathroom and was observed to reach for the counter and door frame as she passed. Pt admitted feeling unsteady. She transferred to the toilet independently, voided, and then walked out of the bathroom SBA. She was able to complete hygiene at the sink with good balance. Pt then ambulated in the halls, completing Functional Gait Assessment SBA (see gait notes ). On return to the room, pt transferred back to the chair independently. She was left with call light and all needs in reach. Gait Assessment Gait Gait Assistance Required: Standby Assistance Distance (Feet) 400 Assistive Devices Assistive Device None,Gait Belt Orthotic/Prosthetic Devices or Brace: No Gait Deviations General Gait Pattern Within Normal Limits Factors Limiting Gait Function Factors Limiting Gait Function Decreased Sensation,Decreased Strength,Poor Balance Comments Gait Comments Pt completed FGA with score of . Single points were deducted for gait with horizontal head turns, step over obstacle, gait with eyes closed, stairs. Two points deducted for NBOS. Stair Climbing Assessment Evaluation Level of Assist On Stairs Independent Devices Stair Climbing Assistive Devices Left Railing Technique/Endurance Stair Climbing Direction Ascend and Descend Stair Climbing Technique Step Over Step Number of Steps Climbed 12 Query Text: Stair Climbing Set # Repetitions (reps) 1 PT-Balance Assessment Sitting Balance and Reactions Static Sitting Balance Ability Normal Dynamic Sitting Balance Ability Normal Standing Balance and Reactions Static Standing Balance Ability Good Dynamic Standing Balance Ability Good Device Used no AD Balance Tests Single Limb Standing RLE 5 seconds; LLE <4 seconds and unsteady Romberg WNL EO and EC Functional Assessments Functional Tests Functional Gait Assessment M5 PT-IP Objective Assessments Start: 11/29/20 08:44 Freq: NEEDED Status: Active Protocol: Document 11/29/20 09:30 AW (Rec: 11/29/20 10:59 AW [id number]) Orientation Orientation/Cognition Level of Alertness Alert Orientation Name,Age,Birthday,Month,Date, Year,Day of Week,Place, Situation Safety Awareness Understands Safety Issues Memory Description No Deficits Noted Gross Range of Motion Upper Extremity ROM Assessment Within Functional Limits Lower Extremity ROM Assessment Within Functional Limits Strength Lower Extremity Strength Assessment Left Impaired Hip 4-/5 Knee 4-/5 Ankle 4+/5 Comments Strength Comments RLE grossly 4+/5 Coordination Assessment Gross Coordination Gross Coordination Impaired Assessment Finger to Nose Test Minimal Impairment Foot Tapping Test Normal Performance Heel on Aguirre Test Normal Performance Coordination Comments Missed targets on finger to nose <2 cm each rep Sensation Assessment Sensation Gross Sensation Left LE Impaired Proprioception (Position) Impaired Muscle Tone Muscle Tone WNL Yes Comments Muscle Tone Comments Negative clonus bilaterally Other Assessments Other Other Assessments Occulomotor and vestibular exam grossly WNL. M6 PT-IP Treatment Start: 11/29/20 08:44 Freq: NEEDED Status: Active Protocol: Document 11/29/20 09:30 AW (Rec: 11/29/20 10:59 AW [id number]) Physical Therapy Treatment Education Education Provided Safety Other Treatments Other Treatment Performed Educated pt on dynamic balance impairments and recommendation for outpatient PT. M7 PT-IP Assessment and Plan Start: 11/29/20 08:44 Freq: NEEDED Status: Active Protocol: Document 11/29/20 09:30 AW (Rec: 11/29/20 10:59 AW [id number]) PT Summary Assessment and Plan Potential Rehabilitation Potential Excellent Status of Condition at Evaluation Stable Summary Impairments Strength,Balance,Sensation, Gait Assessment Summary Himanshu is an 80 yp woman seen for PT evaluation with admitting diagnosis of TIA vs CVA. MRI reveals 1. No acute intracranial abnormalities. 2. Foci of T2 hyperintensity in periventricular and subcortical white matter may be secondary to a combination of chronic small vessel ischemia and a demyelinating process such as multiple sclerosis. 3. T2 hyperintensity in the marti could be secondary to chronic small vessel ischemic change versus osmotic pontine myelinosis. Recommend clinical correlation. 4. Moderate volume loss. Pt is independent in all regards at baseline. She presents with impaired LLE strength, mildly impaired left-sided coordination and proprioception, and dynamic balance degradation compared with her reported baseline. Pt outscores her age-matched peers on Functional Gait Assessment with a score of 24/ 30 compared with the mean of 20.8 per Walker, 2007. However , pt admits her balance has been affected and is not consistent with her baseline. PT recommends outpatient PT to address strength, coordination, and dynamic balance deficits. Pt will be safe to discharge home once medically cleared. Goals Gait Goal Independent Gait Distance 500 Frequency of Treatment Frequency Of Treatment Once a Day Treatment Plan Physical Therapy Treatment Plan Transfer Training,Gait Training,Therapeutic Exercise, Balance Retraining,Discharge Planning,Neuromuscular Re-ed, Coordination Retraining Other Recommendations and Next Treatment dynamic balance activities Focus Recommendations To Nursing Amount of Assist Needed Standby Assistance Discharge Recommendations PT Discharge Recommendations Home,Outpatient PT Transportation Needs at Discharge Private Vehicle
--- NOTE | 2020-11-29 10:39 | P.DS_ITS ---
History of Present Illness History of Present Illness Date Patient Seen: 11/29/20 Time Patient Seen: 10:39 Chief complaint: legs are not working Narrative: Per LIANA Lopez: Ms. Himanshu Johnson is an 80-year-old female with a past medical history significant for hypertension, hyperlipidemia, prior TIA and history peripheral neuropathy who presents to the ER with complaints of difficulty walking. Patient reports waking at 6:00 a.m. this morning with left leg weakness. Her last known normal was at bedtime yesterday. She describes her symptoms waxing and waning and has associated balance difficulty was found to have difficulty sitting up in the emergency department which has completely resolved. She denies headaches or dizziness, no visual changes, no difficulty chewing or swallowing, no speech difficulties, nausea vomiting. The patient did have a decrease in her atorvastatin dose from 20 mg to 10 mg several months ago. She was started on atorvastatin empirically related to prior TIA stating that she never was found to have elevated cholesterol. She additionally has been found to have elevated liver enzymes and a trial lowering of the statin dose was an attempt to evaluate its role. The patient has been on aspirin daily she states she takes aspirin 81 mg 3 days per week. She has had previous bleeding issues with bruising and epistaxis with the last episode 2 months ago. Patient has had no recent complaints of cold or flu symptoms. Has had no known COVID-19 exposures. She denies fevers or chills, nasal congestion or sore throat. She denies neck or back pain. She reports no complaints of chest pain or palpitations, shortness of breath cough or wheezing. She has had no epigastric or abdominal pain and denies changes in bowel habits. She has a history of irritable bladder and urinary incontinence. Patient is typically ambulatory without assistive devices at baseline. Upon arrival to the ER the patient has a temperature of 97.5, heart rate of 79, blood pressure 190/80, respirations of 20 saturating 95% on room air. A CT of the head stroke protocols obtained which finds no acute findings however does find small instinct hypodensity in the right thalamus that is nonspecific, chronic white matter small-vessel ischemic changes with [id number] cerebral volume loss. Twelve lead EKG finds sinus rhythm with occasional PAC at a rate of 64, no block, ST or T-wave changes, Q-waves are noted in V1 through V3 consistent with anteroseptal infarct. On laboratory analysis the patient has white count of 7.1, hemoglobin of 15.0 and a hematocrit of 45.5 and platelets of 223. Coagulation studies are within normal range. Her lipid lytes within normal range she has a BUN of 18 and creatinine 0.72. Her nonfasting glucose is 111. She has a total bilirubin of 0.5, AST of 44, ALT of 20 and alkaline phosphate is 192. Total CK is 68 and troponin is negative at less than 0.012. In the ER the patient's administered aspirin 324 mg and started on normal saline infusion. The patient passes swallow screen in the ER. The patient is outside the window for tPA and is not a candidate for interventional procedure. The patient is admitted to the hospitalist service for further evaluation and workup for TIA. Discharge Providers Provider Date of admission: 11/28/20 22:16 Discharge Date: 11/29/20 Primary care physician: LIANA Magallanes Consults: 11/28/20 23:43 Consult to Discharge Planning Routine Comment: Consult to Occupational Therapy Evaluate & Treat Comment: Physician Instructions: Evaluate and treat Consult to Physical Therapy Evaluate & Treat Comment: Physician Instructions: Evaluate and Treat Consult to Speech Therapy Evaluate & Treat Comment: Physician Instructions: Evaluate and treat 11/29/20 00:07 Consult to Dietitian, Adult Routine Comment: Reason For Exam: BMI 20.8, TIA, heart healthy diet Discharge provider: Mukul Head DO Summary Hospital Course Discharge Diagnosis: 1. TIA, acute, present on admission, active 2. Hypertension, uncontrolled, present on admission, active. 3. Hyperlipidemia, chronic, stable. 4. Elevated LFTs, chronic, stable Hospital Course: This patient is an 80-year-old female with a past medical history significant for hypertension, hyperlipidemia, prior TIA and history jaqui pheral neuropathy who presents to the ER with complaints of difficulty walking. She noted some bilateral weakness with left greater than right and she was admitted for further evaluation. Her stroke scale on admission was 0, an MRI did not show evidence of acute infarct but did show some nonspecific findings which may be indicative of chronic ischemic changes. She had only been taking her aspirin 3 times per week due to issues with epistaxis, and given this I did not recommend that she start on Plavix to reduce her stroke risk, but rather start taking her aspirin daily. She was seen by Physical therapy and was recommended for outpatient treatment. She also had mildly elevated LFTs as an outpatient, and her Lipitor dose was reduced. There was no significant improvement in her AST and ALT on her admission blood work, so Lipitor was unlikely the culprit. This was increased to 20 mg, her previous dose given her very well controlled LDL at 40. Ideally would recommend further increase given history of TIAs to 40 mg or high intensity dosing when feasible for additional stroke prevention. Another possible cause may be due to ingestion of an edible, as her urine drug screen was positive for marijuana. She was also notably hypertensive, but was asymptomatic. She was started on a small dose of losartan, 25 mg, with recommendation to follow-up with her primary care provider within the week or early next week for a blood pressure check and further titration. Status at Discharge Cognitive/behavioral status at discharge: oriented Functional status at discharge: independent ambulation Exam Vital Signs (past 8 hours): - 11/29/20 04:30 11/29/20 08:00 Temperature 97.5 F L 97.4 F L Pulse Rate 69 57 L Respiratory Rate 20 21 Blood Pressure 143/91 H 177/82 H Pulse Oximetry 93 95 Oxygen Delivery Method Room Air Oxygen Flow Rate 0 Narrative Exam Narrative: GENERAL APPEARANCE: well developed, thin elderly woman with a BMI of 20.9 who is briskly interactive, in no acute distress. HEENT: Symmetrical facies, conjunctiva clear, EOMs intact, mucous membranes are moist and pink without lesions or exudate. HEART: regular rate and rhythm, S1-S2, no murmur, no rubs or gallops, 2+ dorsalis pedis pulses, no edema. LUNGS: Clear to auscultation bilaterally without wheezes, rhonchi, rales. ABDOMEN: Soft, no distention, no abdominal tenderness EXTREMITIES: moves all extremities, strength is 5/5 and symmetrical, no deformities or joint effusions, no cyanosis or clubbing. NEUROLOGIC: AAO x4, cranial nerves II-XII grossly intact, decreased sensation fingers and toes which is chronic, hearing grossly normal to speech. PSYCH: Good judgment, linear thought process, cooperative, appropriate with stable behavior. Objective Labs Result Diagrams: 11/29/20 04:49 11/29/20 04:49 Labs: Laboratory Results - last 24 hr 11/28/20 11/28/20 11/28/20 20:40 20:40 20:40 WBC 7.1 RBC 4.89 Hgb 15.0 Hct 45.5 MCV 93.0 MCH 30.6 MCHC 32.9 RDW 13.3 Plt Count 223 Neut % (Auto) 50.8 Lymph % (Auto) 36.2 [place] % (Auto) 8.3 Eos % (Auto) 4.2 H Baso % (Auto) 0.5 Neut # (Auto) 3600 Lymph # (Auto) 2600 [place] # (Auto) 600 Eos # (Auto) 300 Baso # (Auto) 0 PT 11.1 INR 1.0 APTT 33 Sodium 137 Potassium 4.9 Chloride 104 Carbon Dioxide 25 BUN 18 H Creatinine 0.72 Estimated GFR > 60.0 BUN/Creatinine Ratio 25.0 H Glucose 111 H Hemoglobin A1c Calcium 9.6 Magnesium Total Bilirubin 0.5 AST 44 H ALT 20 Alkaline Phosphatase 192 H Total Creatine Kinase 68 CK-MB (CK-2) TNP CK-MB (CK-2) Rel Index TNP Troponin I < 0.012 Total Protein 8.4 H Albumin 4.4 Globulin 4.0 Albumin/Globulin Ratio 1.1 Triglycerides Cholesterol LDL Cholesterol, Calc HDL Cholesterol TSH Nasal Screen MRSA (PCR) U Opiates 300ng/mL cut Ur Oxycodone Screen Urine Methadone Screen Ur Barbiturates Screen U Tricyclic Antidepress Ur Phencyclidine Scrn Ur Amphetamines Screen U Methamphetamines Scrn Ur MDMA Scrn (Ecstasy) U Benzodiazepines Scrn Urine Cocaine Screen U Marijuana (THC) Screen Ethyl Alcohol < 10 SARS-CoV-2 (PCR) 11/28/20 11/28/20 11/28/20 20:40 20:40 22:05 WBC RBC Hgb Hct MCV MCH MCHC RDW Plt Count Neut % (Auto) Lymph % (Auto) [place] % (Auto) Eos % (Auto) Baso % (Auto) Neut # (Auto) Lymph # (Auto) [place] # (Auto) Eos # (Auto) Baso # (Auto) PT INR APTT Sodium Potassium Chloride Carbon Dioxide BUN Creatinine Estimated GFR BUN/Creatinine Ratio Glucose Hemoglobin A1c 5.7 Calcium Magnesium 2.4 H Total Bilirubin AST ALT Alkaline Phosphatase Total Creatine Kinase CK-MB (CK-2) CK-MB (CK-2) Rel Index Troponin I Total Protein Albumin Globulin Albumin/Globulin Ratio Triglycerides Cholesterol LDL Cholesterol, Calc HDL Cholesterol TSH Nasal Screen MRSA (PCR) U Opiates 300ng/mL cut Ur Oxycodone Screen Urine Methadone Screen Ur Barbiturates Screen U Tricyclic Antidepress Ur Phencyclidine Scrn Ur Amphetamines Screen U Methamphetamines Scrn Ur MDMA Scrn (Ecstasy) U Benzodiazepines Scrn Urine Cocaine Screen U Marijuana (THC) Screen Ethyl Alcohol SARS-CoV-2 (PCR) Negative 11/28/20 11/28/20 11/29/20 22:25 23:30 04:49 WBC 6.1 RBC 4.19 Hgb 12.8 Hct 39.1 MCV 93.3 MCH 30.6 MCHC 32.8 RDW 13.3 Plt Count 189 Neut % (Auto) 54.7 Lymph % (Auto) 32.3 [place] % (Auto) 8.7 Eos % (Auto) 3.7 Baso % (Auto) 0.6 Neut # (Auto) 3400 Lymph # (Auto) 2000 [place] # (Auto) 500 Eos # (Auto) 200 Baso # (Auto) 0 PT INR APTT Sodium Potassium Chloride Carbon Dioxide BUN Creatinine Estimated GFR BUN/Creatinine Ratio Glucose Hemoglobin A1c Calcium Magnesium Total Bilirubin AST ALT Alkaline Phosphatase Total Creatine Kinase CK-MB (CK-2) CK-MB (CK-2) Rel Index Troponin I Total Protein Albumin Globulin Albumin/Globulin Ratio Triglycerides Cholesterol LDL Cholesterol, Calc HDL Cholesterol TSH Nasal Screen MRSA (PCR) Negative for mrsa U Opiates 300ng/mL cut Negative Ur Oxycodone Screen Negative Urine Methadone Screen Negative Ur Barbiturates Screen Negative U Tricyclic Antidepress Negative Ur Phencyclidine Scrn Negative Ur Amphetamines Screen Negative U Methamphetamines Scrn Negative Ur MDMA Scrn (Ecstasy) Negative U Benzodiazepines Scrn Negative Urine Cocaine Screen Negative U Marijuana (THC) Screen Positive H Ethyl Alcohol SARS-CoV-2 (PCR) 11/29/20 11/29/20 04:49 04:49 WBC RBC Hgb Hct MCV MCH MCHC RDW Plt Count Neut % (Auto) Lymph % (Auto) [place] % (Auto) Eos % (Auto) Baso % (Auto) Neut # (Auto) Lymph # (Auto) [place] # (Auto) Eos # (Auto) Baso # (Auto) PT INR APTT Sodium 138 Potassium 4.0 Chloride 110 H Carbon Dioxide 25 BUN 17 Creatinine 0.59 Estimated GFR > 60.0 BUN/Creatinine Ratio 28.8 H Glucose 102 Hemoglobin A1c Calcium 8.7 Magnesium Total Bilirubin 0.2 AST 27 ALT 14 Alkaline Phosphatase 153 H Total Creatine Kinase CK-MB (CK-2) CK-MB (CK-2) Rel Index Troponin I Total Protein 6.1 L Albumin 3.1 L Globulin 3.0 Albumin/Globulin Ratio 1.0 Triglycerides 77 Cholesterol 113 L LDL Cholesterol, Calc 40 HDL Cholesterol 58 TSH 4.06 Nasal Screen MRSA (PCR) U Opiates 300ng/mL cut Ur Oxycodone Screen Urine Methadone Screen Ur Barbiturates Screen U Tricyclic Antidepress Ur Phencyclidine Scrn Ur Amphetamines Screen U Methamphetamines Scrn Ur MDMA Scrn (Ecstasy) U Benzodiazepines Scrn Urine Cocaine Screen U Marijuana (THC) Screen Ethyl Alcohol SARS-CoV-2 (PCR) [facility] Medical History (Updated 11/28/20 @ 22:46 by LIANA Lopez) Carpal tunnel syndrome (~1999) Chicken pox (~1947) Depression Elevated LFTs Fractures Frequent UTI (~2009) History of fracture History of Mohs micrographic surgery for skin cancer History of urinary incontinence (~2009) Incomplete bladder emptying Left femoral shaft fracture Measles (~1947) Osteoarthritis (~2009) Skin cancer (~1989) Syncope Transient ischemic attack (~2017) Uterine prolapse Venous stasis ulcer Surgical History (Updated 11/28/20 @ 22:46 by LIANA Lopez) Anesthesia Broken femur (~2015) H/O arthroscopic knee surgery H/O umbilical hernia repair History of appendectomy (~1961) History of carpal tunnel release (~1992) History of cholecystectomy (~1961) History of hysterectomy with bilateral oophorectomy History of knee replacement (~2006) History of right breast biopsy History of skin graft Status post repair of nerve Family History Father History of heart disease Mother Mental health problem Brother Drug abuse Family/Other Cerebral aneurysm Social History household members: none Smoking Status: Former smoker Discharge Plan Discharge Plan Patient Disposition: Home Provider Discharge Comment: You were admitted to the hospital with weakness probably due to a TIA. Your MRI did not show a stroke but did show some evidence of some plaque. Recommend increasing your atorvastatin and aspirin to daily. You were also started on a BP medication. Please follow up with your PCP this week or early next week. Discharge orders & Medications Prescriptions: New atorvastatin [Lipitor] 20 mg Tablet 20 mg PO BEDTIME 30 Days Qty: 30 RF: 0 losartan 25 mg Tablet 25 mg PO DAILY 30 Days Qty: 30 RF: 0 aspirin [Aspirin Low Dose] 81 mg tablet,delayed release (DR/EC) 81 mg PO DAILY 30 Days Qty: 30 RF: 0 Continued calcium carbonate-vitamin D3 [Calcium 600 with Vitamin D3] 600 mg(1,500mg) - 500 unit capsule 2 cap PO DAILY RF: 0 calcium carb-D3-mag [id number] [id number]-mg tablet 1 tab PO DAILY RF: 0 vitamin B complex [B Complex-Vitamin B12] tablet 1 tab PO DAILY RF: 0 Estriol Vaginal Deja 1.5 mg vaginal MOWEFR PRN (Reason: Vaginal Dryness) RF: 0 Discontinued aspirin 81 mg tablet,delayed release (DR/EC) 81 mg PO MOWEFR RF: 0 atorvastatin 20 mg tablet 10 mg PO BEDTIME Qty: 90 RF: 3 Follow up/Referrals: Manuela Adams ARNP [Primary Care Provider] - Discharge Health Status Multidrug resistant organism: No MDRO Diet/Activity/Treatments Diet: Diet as Tolerated Activity: As tolerated Visit Report/Discharge Packet Instructions: Essential Hypertension, DI for Transient Ischemic Attack, Atorvastatin, Aspirin, Losartan Discharge Data Primary Care Provider: Manuela Adams Attending Provider: Mukul Bryant VTE Deep Vein Thrombosis/Pulmonary Embolism Present on Admission: No
--- NOTE | 2020-11-29 11:06 | CM.DANOTE ---
Discharge Planning: Patient is 80 yo female with Medicare. Patient presents to hospital with complaints of difficulty walking and leg weakness. Patient had CT and MRI and TIA was ruled out. parking control officer met with patient during rounds, patient is A/Ox4 sitting upright in chair. Patient reports that daughter in law will pick her up at d/c. Patient lives alone and son and daughter in law live next door. Per PT, patient is independently walking but presents with mildly impaired left sided coordination and balance. Patients states that her balance has been impacted. PT recommends outpatient PT to address strength, balance and coordination. Patient is safe to d/c and medically cleared. Per ST, patient is back to baseline but provided outpatient information in case ST is needed. Per OT, patient is independent and no need for OT eval at this time. Plan: d/c to home with outpatient PT. CATHY Crawford Discharge Planning/Care Management CM Discharge Assessment Start: 11/29/20 11:00 Freq: Status: Active Protocol: Document 11/29/20 11:01 LN (Rec: 11/29/20 11:06 LN [id number]) Discharge Planning Assessment Assigned Tableau Report Developer CATHY Crawford Advance Directives? Yes: DPOA,POLST History Provided By Patient Has Patient been admitted in last 30 No days? Prior Living Arrangements House Household Members none Comment Son and daughter in law live next door. Comment patient reports her daughter in law will pick her up at d/c today. Independent with ADL's Yes Is patient alert and oriented? Yes Discharge Plan Home Community Services Physical Therapy Please Provide Date Initial DC 11/29/20 Assessment Was Performed
--- NOTE | 2020-11-29 11:13 | OT.IPNOTE ---
OT order recieved. Discussed case with P.T. and nursing, then spoke with pt in the room. Pt is donning socks and tying shoes while speaking to this gag writer. Pt states no weakness to the UE, no change in vision, and no concerns for caring for herself at home. Will discharge order as pt appears to be at her baseline for self care and UE strength. No further OT needs.
--- NOTE | 2020-11-29 17:12 | SLP.IPNOTE ---
Screened pt for swallow and expressive, receptive and cognitive communication skills. Pt reported occasional coughing with liquids when distracted. In this CARD CUTTER HELPER's presence she consumed sips of thin liquid from straw without overt s/sx of aspiration. She declined swallow evaluation, stating that she felt she just needed to be more mindful when swallowing. She denied expressive, receptive and cognitive communication changes. Stated she was reading a book on memory and was encouraged that her mild memory loss appeared to be normal with aging. This CARD CUTTER HELPER informed pt of CARD CUTTER HELPER outpatient services and encouraged her to inform her PCP if she observed any significant changes or had additional concerns. She verbalized understanding, agreement, and appreciation of information.
== END 2020-11-29 11:00 | disposition home or self-care (01) ==
LOC: ED 22:06 → AC 22:17 → ICU 23:34
PROVIDERS: Admitting Provider Nurse Practitioner Adult Health; Emergency Provider Emergency Medicine; PCP Nurse Practitioner; Referring Provider Emergency Medicine; Visit Provider Nurse Practitioner Adult Health
DX: G45.9 Transient cerebral ischemic attack, unspecified (principal); E78.5 Hyperlipidemia, unspecified; I10 Essential (primary) hypertension; G62.9 Polyneuropathy, unspecified; Z20.822 Contact with and (suspected) exposure to COVID-19
CPT/HCPCS: 36415; 70450; 70548; 70553; 80053; 80061; 80305; 80320; 81003; 82550; 82962; 83036; 83735; 84443; 84484; 85025; 85610; 85730; 87635; 87797; 93005; 93306; 96360; 96361; 96372; 97161; 99284; 99285; G0378; J1650

== ENCOUNTER 2021-02-17 12:25 | Emergency (ER) | payer MEDICARE, OTHER, SELFPAY ==
[2021-02-17 12:29] VITALS: BP 135/69; PULSE 86; RESP 15; TEMP 36.6; O2SAT 96; BMI 20.6
[2021-02-17 14:55] VITALS: BP 107/62; PULSE 91; O2SAT 100
--- NOTE | 2021-02-17 17:31 | PC.NURSE ---
Patient states she has been getting them frequently, also notices increase bruising. Patient denies chest pain, dizziness or SOB
--- NOTE | 2021-02-17 18:05 | ED_ITS ---
HPI - Epistaxis General Chief complaint: Nasal Problem Stated complaint: profuse bloody noses Time Seen by Provider: 02/17/21 17:51 Source: patient Mode of arrival: Ambulatory Limitations: no limitations History of Present Illness HPI Narrative: 80-year-old woman with hypertension hyperlipidemia and is currently on a baby aspirin presents with recurrent nose bleeds. She notes that they are typically on the left side and today lasted long enough that she felt there is at least a cup of blood that eventually came out with clots and more that was swallowed. Up by the time she arrives in the emergency department the bleeding has stopped nicely. She notes that she has had nose bleeds intermittently but over the last few months the seem to have gotten worse. She describes increasing bruising over her extremities and taking very little trauma to cause the bruising. She is not describing any headaches, fevers, dyspnea, palpitations, abdominal pain. Related Data Home Medications Medication Instructions Recorded Confirmed calcium carb-vit [id number] 1 tab PO DAILY 05/19/19 12/01/20 333 mg-200 unit-133 mg-5 mg tablet calcium carbonate 600 mg (1,500 2 cap PO DAILY cap 05/19/19 12/01/20 mg)-vitamin D3 500 unit capsule vitamin B complex 1 tab PO DAILY 05/19/19 12/01/20 Estriol Vaginal Deja 1.5 mg VAGINAL MOWEFR PRN 11/29/20 12/01/20 Previous Rx's Medication Instructions Recorded glucosam 750 mg-chondroi 100 1 tab PO .QD #90 tab 12/08/20 mg-hyalur 1.65 mg-CF borate 108 mg tablet losartan 25 mg tablet 25 mg PO DAILY 90 Days #90 tab 12/16/20 Allergies Allergy/AdvReac Type Severity Reaction Status Date / Time codeine AdvReac Intermediate Nausea Verified 02/17/21 12:30 morphine AdvReac Intermediate Nausea Verified 02/17/21 12:30 Review of Systems Review of Systems Narrative: Remainder of complete review of systems is otherwise unremarkable except for that included in the HPI. Patient History Medical History Adverse effect of fluorouracil Carpal tunnel syndrome (~1999) Chicken pox (~1948) Depression Elevated LFTs Fractures Frequent UTI (~2009) History of CVA (cerebrovascular accident) History of fracture History of Mohs micrographic surgery for skin cancer History of urinary incontinence (~2009) Incomplete bladder emptying Left femoral shaft fracture Measles (~1948) Osteoarthritis (~2009) POLST (Physician Orders for Life-Sustaining Treatment) Rash and nonspecific skin eruption Skin cancer (~1989) Syncope Transient ischemic attack (~2017) Uterine prolapse Venous stasis ulcer Surgical History Anesthesia Broken femur (~2015) H/O arthroscopic knee surgery H/O umbilical hernia repair History of appendectomy (~1961) History of carpal tunnel release (~1992) History of cholecystectomy (~1961) History of hysterectomy with bilateral oophorectomy History of knee replacement (~2006) History of right breast biopsy History of skin graft Status post repair of nerve Family History Father History of heart disease Mother Mental health problem Brother Drug abuse Family/Other Cerebral aneurysm Social History household members: none Smoking Status: Former smoker Smoking Status: Former smoker alcohol intake frequency: holidays/special occasions only Substance Use Type: does not use Exam Narrative Exam Narrative: General: Alert appropriate in no acute distress HEENT: No obvious bleeding sources appreciated in the nose or along the nasal septum. Respiratory: Able to speak in full sentences, no obvious respiratory distress Skin: Very thin with bruises in various stages of healing, warm and dry Neurologic: Grossly intact no obvious asymmetries or abnormalities Psych: appropriate insight and affect, cooperative Initial Vital Signs Initial Vital Signs: Vital Signs Temperature 97.9 F 02/17/21 12:29 Pulse Rate 86 02/17/21 12:29 Respiratory Rate 15 02/17/21 12:29 Blood Pressure 135/69 02/17/21 12:29 Pulse Oximetry 96 02/17/21 12:29 Course Vital Signs Vital signs: Vital Signs - 8 hr 02/17/21 12:29 02/17/21 14:55 Temperature 97.9 F Pulse Rate 86 91 H Respiratory Rate 15 Blood Pressure 135/69 107/62 Pulse Oximetry 96 100 MDM - Epistaxis Medical Records Attestation: I reviewed the patient's medical records. [facility] Narrative Medical decision making narrative: 80-year-old woman with recurrent nose bleeds. I suspect she has a spot on the at the nasal septum that may benefit from being cauterized. To that end I have referred her to Dr. Avery for an outpatient appointment. We talked about keeping her nose well moisturized. She does not complain of seasonal allergies or chronic nasal discharge. I discussed the use of Afrin if she has an acute nose bleed again. We also and a bit of time discussing her blood pressure which at this point seems to be well controlled and does not seem to be contributing to the frequency of these nosebleeds. Labs from November reviewed and there is no evidence of thrombocytopenia or coagulopathy. She is safe for home discharge Discharge Plan Departure Patient Disposition: Home Clinical Impression: Epistaxis Instructions: DI for Nosebleed Activity Restrictions/Additional Instructions: Thank you for coming in today I am glad the bleeding has stopped. Blood work in November does not show any platelet abnormalities or clotting difficulties otherwise. To prevent nosebleeds please continue using the lubricant that you currently have at least twice a day. When you get another nose bleed try using some Afrin soaked Q-tips in your nose applied against the bleeding spot to help the blood vessels constrict and the bleeding slow sooner. Please contact Dr. Avery at [facility] at [phone] and schedule an appointment for recurrent nose bleeds. Please continue to keep track of your blood pressures and follow-up with your primary care provider in the middle of February as scheduled. I wish you the best Prescriptions: No Action losartan 25 mg tablet 25 mg PO DAILY 90 Days Qty: 90 RF: 3 Move Free Rkylin [facility] 750 mg-100 mg- 1.65 mg-108 mg tablet 1 tab PO .QD Qty: 90 RF: 0 calcium carbonate-vitamin D3 [Calcium 600 with Vitamin D3] 600 mg(1,500mg) - 500 unit capsule 2 cap PO DAILY RF: 0 calcium carb-D3-mag [id number] [phone] vk-nwyw-aj-mg tablet 1 tab PO DAILY RF: 0 vitamin B complex [B Complex-Vitamin B12] tablet 1 tab PO DAILY RF: 0 Estriol Vaginal Deja 1.5 mg vaginal MOWEFR PRN (Reason: Vaginal Dryness) RF: 0 Referrals: Manuela Adams ARNP [Primary Care Provider] - Hao Avery MD [Physician] -
[2021-02-17 18:11] VITALS: BP 141/69; PULSE 66; RESP 16
== END 2021-02-17 18:12 | disposition home or self-care (01) ==
PROVIDERS: Emergency Provider Emergency Medicine; PCP Nurse Practitioner
DX: R04.0 Epistaxis (principal)
CPT/HCPCS: 99281

== ENCOUNTER → 2021-06-08 12:36 | Outpatient (ROUT) | payer MEDICARE, OTHER, SELFPAY ==
[2021-06-08 12:47] LABS: Appearance Urine UA CLOUDY; Bilirubin Urine UA NEGATIVE (NEGATIVE); Color Urine UA YELLOW; Glucose Urine UA NEGATIVE (Negative); Ketones Urine UA NEGATIVE (NEGATIVE); Leukocyte Esterase Urine UA 3+ (NEGATIVE); Nitrite Urine UA POSITIVE (Negative); Occult Blood Urine UA 1+ (Negative); Protein Urine UA NEGATIVE (Negative); Specific Gravity Urine UA <=1.005 (1.000-1.035); Urobilinogen Urine UA 0.2 E.U./dL (0.2)
[2021-06-08 12:48] LABS: pH Urine UA 5.5 (4.5-8.0)
[2021-06-08 12:55] LABS: Bacteria Urine Many (>30); Culture Indicated Urine Specimen Cultured; RBC Urine None Seen (0-5/HPF); WBC Urine >100/HPF (0-5/HPF)
== END ==
PROVIDERS: PCP Nurse Practitioner; Visit Provider Nurse Practitioner
DX: N39.0 Urinary tract infection, site not specified (principal); R30.9 Painful micturition, unspecified
CPT/HCPCS: 81003; 81015; 87077; 87086; 87186

== ENCOUNTER → 2021-08-11 15:38 | Outpatient (CLI) | payer MEDICARE, OTHER, SELFPAY ==
[2021-08-11 15:59] LABS: Appearance Urine UA CLOUDY; Bilirubin Urine UA NEGATIVE (NEGATIVE); Color Urine UA YELLOW; Glucose Urine UA NEGATIVE (Negative); Ketones Urine UA NEGATIVE (NEGATIVE); Leukocyte Esterase Urine UA 3+ (NEGATIVE); Nitrite Urine UA POSITIVE (Negative); Occult Blood Urine UA 1+ (Negative); Protein Urine UA 1+ (Negative); Specific Gravity Urine UA 1.015 (1.000-1.035); Urobilinogen Urine UA 0.2 E.U./dL (0.2)
[2021-08-11 16:35] LABS: Bacteria Urine Many (>30); Culture Indicated Urine Specimen Cultured; RBC Urine 5-10/HPF (0-5/HPF); Squamous Epithelial Cell Urine 1-5 /HPF (0-5/HPF); WBC Urine >100/HPF (0-5/HPF)
== END ==
PROVIDERS: PCP Nurse Practitioner; Referring Provider Nurse Practitioner; Visit Provider Nurse Practitioner
DX: R30.0 Dysuria (principal)
CPT/HCPCS: 81001; 87077; 87086; 87186

== ENCOUNTER → 2021-08-25 10:13 | Outpatient (CLI) | payer MEDICARE, OTHER, SELFPAY ==
[2021-08-25 11:20] LABS: Appearance Urine UA CLEAR; Bilirubin Urine UA NEGATIVE (NEGATIVE); Color Urine UA YELLOW; Glucose Urine UA NEGATIVE (Negative); Ketones Urine UA NEGATIVE (NEGATIVE); Leukocyte Esterase Urine UA NEGATIVE (NEGATIVE); Nitrite Urine UA NEGATIVE (Negative); Occult Blood Urine UA TRACE-LYSED (Negative); Protein Urine UA NEGATIVE (Negative); Specific Gravity Urine UA 1.025 (1.000-1.035); Urobilinogen Urine UA 0.2 E.U./dL (0.2)
[2021-08-25 11:31] LABS: Amorphous Sediment Urine 1+; Bacteria Urine Moderate (10-30); Culture Indicated Urine Cult Not Indicated; RBC Urine 1-5/HPF (0-5/HPF); Squamous Epithelial Cell Urine 10-30 /HPF (0-5/HPF); WBC Urine 1-5/HPF (0-5/HPF)
[2021-08-25 12:04] LABS: Creatinine Urine Random 100.5 mg/dL
[2021-08-25 12:09] LABS: Microalbumi Creatinin Ratio Ur 11.9 ug/mg CR (<30); Microalbumin Urine Random 1.2 mg/dL (0-1.6)
[2021-08-25 12:10] LABS: Alanine Aminotransferase 23 IU/L (<35); Albumin 4.4 g/dL (3.5-5.0); Albumin Globulin Ratio 1.1 (1.0-2.8); Alkaline Phosphatase 154 U/L (38-126); Aspartate Aminotransferase 42 IU/L (14-36); BUN Creatinine Ratio 27.8 (6-22); Bilirubin Total 0.7 mg/dL (0.2-1.3); Blood Urea Nitrogen 20 mg/dL (7-17); Calcium 9.5 mg/dL (8.4-10.2); Carbon Dioxide 27 mmol/L (22-32); Chloride 105 mmol/L (98-107); Cholesterol 170 mg/dL (140-199); Estimated Glomerular Filt Rate > 60.0 mL/min (>60); Globulin 3.9 g/dL (1.7-4.1); Glucose 87 mg/dL (80-110); HDL Cholesterol 95 mg/dL (40-60); HEMOLYSIS < 15 (0-50); LDL Cholesterol Calculated 62 mg/dL (<100); Potassium 3.8 mmol/L (3.4-5.1); Sodium 138 mmol/L (137-145); Total Protein 8.3 g/dL (6.3-8.2); Triglycerides 65 mg/dL (35-150)
[2021-08-25 12:33] LABS: Free T3, Triiodothyronine Free 3.75 pg/mL (2.77-5.27); Free T4, Direct Thyroxine 0.83 ng/dL (0.78-2.19)
[2021-08-25 12:46] LABS: Thyroid Stimulating Hormone 3.77 uIU/mL (0.47-4.68)
== END ==
PROVIDERS: PCP Nurse Practitioner; Referring Provider Nurse Practitioner; Visit Provider Nurse Practitioner
DX: G45.9 Transient cerebral ischemic attack, unspecified (principal); I10 Essential (primary) hypertension; Z79.899 Other long term (current) drug therapy; F32.9 Major depressive disorder, single episode, unspecified; R30.0 Dysuria
CPT/HCPCS: 36415; 80053; 80061; 81001; 82043; 82570; 84439; 84443; 84481

== ENCOUNTER → 2021-09-26 13:02 | Outpatient (CLI) | payer MEDICARE, OTHER, SELFPAY ==
[2021-09-26 14:42] LABS: Appearance Urine UA SL CLOUDY; Bilirubin Urine UA NEGATIVE (NEGATIVE); Color Urine UA YELLOW; Glucose Urine UA NEGATIVE (Negative); Ketones Urine UA NEGATIVE (NEGATIVE); Leukocyte Esterase Urine UA 3+ (NEGATIVE); Nitrite Urine UA POSITIVE (Negative); Occult Blood Urine UA TRACE-INTACT (Negative); Protein Urine UA NEGATIVE (Negative); Urobilinogen Urine UA 0.2 E.U./dL (0.2)
[2021-09-26 14:58] LABS: Bacteria Urine Many (>30); Culture Indicated Urine Cult Not Indicated; RBC Urine 0-1/HPF (0-5/HPF); Squamous Epithelial Cell Urine 5-10 /HPF (0-5/HPF); Transitional Epi Cells Urine 0-1/HPF (0-5/HPF); WBC Urine 30-100/HPF (0-5/HPF)
== END ==
PROVIDERS: PCP Nurse Practitioner; Referring Provider Nurse Practitioner; Visit Provider Nurse Practitioner
DX: R30.0 Dysuria (principal)
CPT/HCPCS: 81001

== ENCOUNTER → 2021-09-30 13:42 | Outpatient (CLI) | payer MEDICARE, OTHER, SELFPAY | PROVIDERS: PCP Nurse Practitioner; Referring Provider Nurse Practitioner; Visit Provider Nurse Practitioner | DX: R30.0 Dysuria (principal); Z87.440 Personal history of urinary (tract) infections | CPT/HCPCS: 87077; 87086; 87186 ==

== ENCOUNTER → 2021-11-16 10:23 | Outpatient (CLI) | payer MEDICARE, OTHER, SELFPAY ==
[2021-11-16 10:52] LABS: Appearance Urine UA CLOUDY; Bilirubin Urine UA NEGATIVE (NEGATIVE); Color Urine UA YELLOW; Glucose Urine UA NEGATIVE (Negative); Ketones Urine UA NEGATIVE (NEGATIVE); Leukocyte Esterase Urine UA 2+ (NEGATIVE); Nitrite Urine UA POSITIVE (Negative); Occult Blood Urine UA 1+ (Negative); Protein Urine UA TRACE (Negative); Urobilinogen Urine UA 0.2 E.U./dL (0.2)
[2021-11-16 11:00] LABS: Bacteria Urine Many (>30); Culture Indicated Urine Specimen Cultured; RBC Urine 1-5/HPF (0-5/HPF); WBC Urine >100/HPF (0-5/HPF)
== END ==
PROVIDERS: PCP Nurse Practitioner; Referring Provider Nurse Practitioner; Visit Provider Nurse Practitioner
DX: R30.0 Dysuria (principal)
CPT/HCPCS: 81001; 87077; 87086; 87186

== ENCOUNTER → 2021-12-07 13:51 | Outpatient (CLI) | payer MEDICARE, OTHER, SELFPAY ==
[2021-12-07 15:03] LABS: Appearance Urine UA CLEAR; Bilirubin Urine UA NEGATIVE (NEGATIVE); Color Urine UA YELLOW; Glucose Urine UA NEGATIVE (Negative); Ketones Urine UA NEGATIVE (NEGATIVE); Leukocyte Esterase Urine UA NEGATIVE (NEGATIVE); Nitrite Urine UA NEGATIVE (Negative); Occult Blood Urine UA NEGATIVE (Negative); Protein Urine UA NEGATIVE (Negative); Urobilinogen Urine UA 0.2 E.U./dL (0.2)
[2021-12-07 15:46] LABS: Bacteria Urine Occasional (0-1); RBC Urine None Seen (0-5/HPF); Squamous Epithelial Cell Urine 5-10 /HPF (0-5/HPF); WBC Urine 5-10/HPF (0-5/HPF)
== END ==
PROVIDERS: PCP Nurse Practitioner; Referring Provider Nurse Practitioner; Visit Provider Nurse Practitioner
DX: Z87.440 Personal history of urinary (tract) infections (principal)
CPT/HCPCS: 81001

== ENCOUNTER → 2022-03-07 08:02 | Outpatient (CLI) | payer MEDICARE, OTHER, SELFPAY ==
[2022-03-07 08:46] LABS: Appearance Urine UA CLEAR; Bilirubin Urine UA NEGATIVE (NEGATIVE); Color Urine UA YELLOW; Glucose Urine UA NEGATIVE (Negative); Ketones Urine UA NEGATIVE (NEGATIVE); Leukocyte Esterase Urine UA NEGATIVE (NEGATIVE); Nitrite Urine UA NEGATIVE (Negative); Occult Blood Urine UA TRACE-LYSED (Negative); Protein Urine UA NEGATIVE (Negative); Urobilinogen Urine UA 0.2 E.U./dL (0.2)
[2022-03-07 09:07] LABS: Bacteria Urine None Seen; Culture Indicated Urine Cult Not Indicated; RBC Urine None Seen (0-5/HPF); Squamous Epithelial Cell Urine 0-1 /HPF (0-5/HPF); WBC Urine None Seen (0-5/HPF)
[2022-03-07 09:40] LABS: Alanine Aminotransferase 20 IU/L (<35); Albumin 4.3 g/dL (3.5-5.0); Albumin Globulin Ratio 1.3 (1.0-2.8); Alkaline Phosphatase 134 U/L (38-126); Aspartate Aminotransferase 40 IU/L (14-36); BUN Creatinine Ratio 18.6 (6-22); Bilirubin Total 0.8 mg/dL (0.2-1.3); Blood Urea Nitrogen 13 mg/dL (7-17); Calcium 9.7 mg/dL (8.4-10.2); Carbon Dioxide 27 mmol/L (22-32); Chloride 102 mmol/L (98-107); Cholesterol 204 mg/dL (140-199); Estimated Glomerular Filt Rate > 60 mL/min (>60); Globulin 3.3 g/dL (1.7-4.1); Glucose 94 mg/dL (80-110); HDL Cholesterol 89 mg/dL (40-60); HEMOLYSIS 17 (0-50); LDL Cholesterol Calculated 95 mg/dL (<100); Potassium 4.2 mmol/L (3.4-5.1); Sodium 138 mmol/L (137-145); Total Protein 7.6 g/dL (6.3-8.2); Triglycerides 99 mg/dL (35-150)
[2022-03-07 09:48] LABS: Microalbumin Urine Random < 0.6 mg/dL (0-1.6)
== END ==
PROVIDERS: PCP Nurse Practitioner; Referring Provider Nurse Practitioner; Visit Provider Nurse Practitioner
DX: I10 Essential (primary) hypertension (principal); G45.9 Transient cerebral ischemic attack, unspecified; N39.0 Urinary tract infection, site not specified; R30.0 Dysuria; R79.89 Other specified abnormal findings of blood chemistry; Z79.899 Other long term (current) drug therapy
CPT/HCPCS: 36415; 80053; 80061; 81001; 82043; 82570

== ENCOUNTER → 2022-04-19 14:52 | Outpatient (CLI) | payer MEDICARE, OTHER, SELFPAY ==
[2022-04-19 15:39] LABS: Appearance Urine UA CLOUDY; Bilirubin Urine UA NEGATIVE (NEGATIVE); Color Urine UA YELLOW; Glucose Urine UA NEGATIVE (Negative); Ketones Urine UA NEGATIVE (NEGATIVE); Leukocyte Esterase Urine UA 3+ (NEGATIVE); Nitrite Urine UA POSITIVE (Negative); Occult Blood Urine UA 2+ (Negative); Protein Urine UA 1+ (Negative); Specific Gravity Urine UA 1.015 (1.000-1.035); Urobilinogen Urine UA 0.2 E.U./dL (0.2)
[2022-04-19 15:40] LABS: pH Urine UA 7.5 (4.5-8.0)
[2022-04-19 17:20] LABS: Bacteria Urine Many (>30); Culture Indicated Urine Specimen Cultured; RBC Urine None Seen (0-5/HPF); WBC Urine >100/HPF (0-5/HPF)
== END ==
PROVIDERS: PCP Nurse Practitioner; Referring Provider Nurse Practitioner; Visit Provider Nurse Practitioner
DX: N39.0 Urinary tract infection, site not specified (principal); R30.0 Dysuria
CPT/HCPCS: 81003; 81015; 87077; 87086; 87186

== ENCOUNTER → 2022-05-25 15:42 | Outpatient (CLI) | payer MEDICARE, OTHER, SELFPAY ==
[2022-04-21 10:41] VITALS: BMI 20.9
[2022-05-25 17:13] LABS: Appearance Urine UA CLEAR; Bilirubin Urine UA NEGATIVE (NEGATIVE); Color Urine UA YELLOW; Glucose Urine UA NEGATIVE (Negative); Ketones Urine UA NEGATIVE (NEGATIVE); Leukocyte Esterase Urine UA TRACE (NEGATIVE); Nitrite Urine UA NEGATIVE (Negative); Occult Blood Urine UA NEGATIVE (Negative); Protein Urine UA NEGATIVE (Negative); Specific Gravity Urine UA <=1.005 (1.000-1.035); Urobilinogen Urine UA 0.2 E.U./dL (0.2)
[2022-05-25 17:56] LABS: pH Urine UA 6.5 (4.5-8.0)
[2022-05-25 19:01] LABS: Bacteria Urine None Seen; Culture Indicated Urine Cult Not Indicated; RBC Urine None Seen (0-5/HPF); Squamous Epithelial Cell Urine 1-5 /HPF (0-5/HPF); WBC Urine 0-1/HPF (0-5/HPF)
== END ==
PROVIDERS: PCP Nurse Practitioner; Referring Provider Nurse Practitioner; Visit Provider Nurse Practitioner
DX: N39.0 Urinary tract infection, site not specified (principal)
CPT/HCPCS: 81001

== ENCOUNTER → 2022-06-21 09:50 | Outpatient (CLI) | payer MEDICARE, OTHER, SELFPAY ==
[2022-04-21 10:41] VITALS: BMI 20.9
[2022-06-21 10:44] LABS: Alanine Aminotransferase 23 IU/L (<35); Albumin Globulin Ratio 1.3 (1.0-2.8); Alkaline Phosphatase 151 U/L (38-126); Aspartate Aminotransferase 34 IU/L (14-36); Bilirubin Total 0.8 mg/dL (0.2-1.3); Blood Urea Nitrogen 12 mg/dL (7-17); Calcium 9.4 mg/dL (8.4-10.2); Carbon Dioxide 29 mmol/L (22-32); Chloride 100 mmol/L (98-107); Cholesterol 186 mg/dL (140-199); Estimated Glomerular Filt Rate > 60 mL/min (>60); Globulin 3.2 g/dL (1.7-4.1); Glucose 94 mg/dL (80-110); HDL Cholesterol 84 mg/dL (40-60); HEMOLYSIS < 15 (0-50); LDL Cholesterol Calculated 80 mg/dL (<100); Potassium 3.8 mmol/L (3.4-5.1); Sodium 135 mmol/L (137-145); Total Protein 7.2 g/dL (6.3-8.2); Triglycerides 110 mg/dL (35-150)
== END ==
PROVIDERS: PCP Nurse Practitioner; Referring Provider Nurse Practitioner; Visit Provider Nurse Practitioner
DX: E78.5 Hyperlipidemia, unspecified (principal); G45.9 Transient cerebral ischemic attack, unspecified; R79.89 Other specified abnormal findings of blood chemistry; Z78.9 Other specified health status
CPT/HCPCS: 36415; 80053; 80061

== ENCOUNTER → 2022-09-25 13:06 | Outpatient (CLI) | payer MEDICARE, OTHER, SELFPAY ==
[2022-04-21 10:41] VITALS: BMI 20.9
[2022-09-25 13:27] LABS: Appearance Urine UA CLEAR; Bilirubin Urine UA NEGATIVE (NEGATIVE); Color Urine UA YELLOW; Glucose Urine UA NEGATIVE (Negative); Ketones Urine UA NEGATIVE (NEGATIVE); Leukocyte Esterase Urine UA NEGATIVE (NEGATIVE); Nitrite Urine UA NEGATIVE (Negative); Occult Blood Urine UA NEGATIVE (Negative); Protein Urine UA NEGATIVE (Negative); Specific Gravity Urine UA <=1.005 (1.000-1.035); Urobilinogen Urine UA 0.2 E.U./dL (0.2)
[2022-09-25 13:49] LABS: Bacteria Urine None Seen; Culture Indicated Urine Cult Not Indicated; RBC Urine None Seen (0-5/HPF); Squamous Epithelial Cell Urine 0-1 /HPF (0-5/HPF); WBC Urine 0-1/HPF (0-5/HPF)
== END ==
PROVIDERS: PCP Nurse Practitioner; Referring Provider Nurse Practitioner; Visit Provider Nurse Practitioner
DX: R30.0 Dysuria (principal)
CPT/HCPCS: 81001

== ENCOUNTER → 2022-09-28 10:29 | Outpatient (CLI) | payer MEDICARE, OTHER, SELFPAY ==
[2022-04-21 10:41] VITALS: BMI 20.9
[2022-09-28 11:38] LABS: Add Manual Diff / Slide Review NO; Basophils Absolute Auto 0 /uL (0-100); Basophils Percent Auto 0.6 % (0-2); Eosinophils Absolute Auto 200 /uL (0-450); Eosinophils Percent Auto 2.8 % (2-4); Hemoglobin 15.2 g/dL (12.0-16.0); Lymphocytes Absolute Auto 1500 /uL (1100-4500); Lymphocytes Percent Auto 23.8 % (25-40); Mean Corpuscular HGB Conc 33.7 % (30-36); Mean Corpuscular Hemoglobin 31.1 PG (26-34); Mean Corpuscular Volume 92.4 fL (80-100); Monocytes Absolute Auto 500 /uL (0-900); Monocytes Percent Auto 6.9 % (3-14); Neutrophils Absolute Auto 4300 /uL (1500-7000); Neutrophils Percent Auto 65.9 % (50-75); Platelet Count 223 X10^3/uL (150-400); Red Blood Cell Count 4.87 X10^6/uL (4.0-5.2); Red Cell Distribution Width 13.9 % (11.6-14.8); White Blood Cell Count 6.5 X10^3/uL (4.5-11.0)
[2022-09-28 12:47] LABS: Alanine Aminotransferase 19 IU/L (<35); Albumin Globulin Ratio 1.4 (1.0-2.8); Alkaline Phosphatase 125 U/L (38-126); Aspartate Aminotransferase 29 IU/L (14-36); BUN Creatinine Ratio 20.8 (6-22); Bilirubin Total 0.5 mg/dL (0.2-1.3); Blood Urea Nitrogen 15 mg/dL (7-17); Calcium 9.4 mg/dL (8.4-10.2); Carbon Dioxide 26 mmol/L (22-32); Chloride 100 mmol/L (98-107); Estimated Glomerular Filt Rate > 60 mL/min (>60); Globulin 2.9 g/dL (1.7-4.1); Glucose 118 mg/dL (80-110); HEMOLYSIS < 15 (0-50); Potassium 4.3 mmol/L (3.4-5.1); Sodium 136 mmol/L (137-145); Total Protein 6.9 g/dL (6.3-8.2)
[2022-09-28 19:29] LABS: Free T4, Direct Thyroxine 1.11 ng/dL (0.78-2.19)
[2022-09-28 19:43] LABS: Thyroid Stimulating Hormone 3.15 uIU/mL (0.47-4.68)
== END ==
PROVIDERS: PCP Nurse Practitioner; Referring Provider Nurse Practitioner; Visit Provider Nurse Practitioner
DX: I10 Essential (primary) hypertension (principal); R79.89 Other specified abnormal findings of blood chemistry; R53.83 Other fatigue
CPT/HCPCS: 36415; 80053; 84439; 84443; 84481; 85025

== ENCOUNTER → 2023-03-19 13:49 | Outpatient (CLI) | payer MEDICARE, OTHER, SELFPAY ==
[2022-04-21 10:41] VITALS: BMI 20.9
--- NOTE | 2023-03-19 14:20 | DI.ECHO.S_ITS ---
[facility]---------+ [facility] +---------+ : : [address] : : : : [id number] : : : : Phone: [phone]---------+ Echocardiogram Report + + :Name: EDVIN FERNANDEZ Study Date: 03/19/2023 Height: 65 in : :[facility] ReadingLocation: Weight: 121 lb : : Gender: Female BSA: 1.6 m2 : :: 1940 Age: 82 yrs BP: 138/79 mmHg: :Reason For Study: HYPERTENSION : :Ordering Physician: HONORIO, : :CHAPO Performed By: Jennifer Johansen : :Referring: CHAPO OLMEDO : + + Interpretation Summary The patient was in normal sinus rhythm during the exam. The patient had frequent PACs during the exam. The left ventricle is normal in size and wall thickness. The ejection fraction is estimated to be 60-65%. No regional wall motion abnormalities however during PACs, significant LV dyssynchrony seen. The right ventricle is normal in size and function. There is mild to moderate mitral regurgitation. Compared to the prior echo study, there has been an increase in the severity of mitral regurgitation. There is mild aortic regurgitation. Compared to the prior echo study, there has been no change in the severity of aortic regurgitation. There is moderate tricuspid regurgitation. No significant change in TR severity. The right ventricular systolic pressure is estimated to be at least 34 mmHg based on an estimated right atrial pressure of 3 mm Hg. Previously 44 mmHg. There is mild luminal irregularity and echogenicity in the abdominal aorta, suggestive of aortic atherosclerotic disease. Mild atherosclerotic plaque(s) in the aortic arch. Procedure: A two-dimensional transthoracic echocardiogram with color flow and Doppler was performed. The study quality was technically adequate. Comparison is made with the echocardiogram of 11/29/2020. The heart rate ranged between 56-70 bpm during the study. The patient was in normal sinus rhythm during the exam. The patient had frequent PACs during the exam. Left Ventricle: The left ventricle is normal in size and wall thickness. There is no thrombus. The ejection fraction is estimated to be 60-65%. No regional wall motion abnormalities however during PACs, significant LV dyssynchrony seen. Diastolic parameters suggest a relaxation abnormality of the left ventricle, consistent with probable normal filling pressures. Right Ventricle: The right ventricle is normal in size and function. Atria: The left atrial size is normal. The left atrium has mildly decreased in size since the prior echo exam. Right atrial size is normal. There is no Doppler evidence for an interatrial shunt. Mitral Valve: There is mild mitral annular calcification. The mitral valve leaflets are slightly calcified. There is mild to moderate mitral regurgitation. Compared to the prior echo study, there has been an increase in the severity of mitral regurgitation. Aortic Valve: The aortic valve is trileaflet. The aortic valve opens well. The aortic valve is mildly calcified. There is no aortic valve stenosis. There is mild aortic regurgitation. Compared to the prior echo study, there has been no change in the severity of aortic regurgitation. Tricuspid Valve: The tricuspid valve is normal. There is moderate tricuspid regurgitation. The right ventricular systolic pressure is estimated to be at least 34 mmHg based on an estimated right atrial pressure of 3 mm Hg. Compared to the prior echo exam, there has been no change in TR severity. Pulmonic Valve: The pulmonic valve leaflets are thin and pliable; valve motion is normal. There is mild pulmonic regurgitation. Great Vessels: The aortic root is normal size. The dimensions of the ascending aorta are normal. There is mild luminal irregularity and echogenicity in the abdominal aorta, suggestive of aortic atherosclerotic disease. Mild atherosclerotic plaque(s) in the aortic arch. The IVC is of normal diameter and collapses greater than 50% with a sniff. This suggests a low right atrial pressure of 3 mm Hg. Pericardium/ Pleura There is no pericardial effusion. There is no pleural effusion. MMode/2D Measurements & Calculations LVIDd: 4.5 cm Ao root diam: 2.7 cm LVIDs: 3.1 cm asc Aorta Diam: 3.6 cm FS: 31.6 % Ao Arch Diam (Prox Trans): 2.4 cm EPSS: 0.55 cm IVSd: 0.68 cm LVPWd: 0.78 cm LV schaeffer. diameter/BSA (cm/m^2): 2.8 LV sys. diameter/BSA (cm/m^2): 1.9 LA A2 area: 17.6 cm2 RA long axis: 5.1 cm LA A4 area: 15.5 cm2 RA area: 16.0 cm2 LA length (vol): 4.7 cm RA vol: 42.8 ml LA vol: 48.9 ml RA : 26.8 ml/m2 LA vol index: 30.6 ml/m2 IVC diam: 1.4 cm RVD1 (basal): 3.5 cm RVD2 (mid): 2.8 cm TAPSE: 2.4 cm Doppler Measurements & Calculations Ao V2 max: 146.0 cm/sec LVOT Max Aldo: 97.3 cm/sec Ao V2 mean: 103.0 cm/sec LV V1 max P.8 mmHg Ao max P.5 mmHg LV V1 VTI: 21.9 cm Ao mean P.6 mmHg sev ratio: 0.59 Ao V2 VTI: 37.2 cm AI P1/2t: 878.8 msec AI dec slope: 133.6 cm/sec2 MV E max aldo: 52.4 cm/sec TR max aldo: 279.2 cm/sec MV A max aldo: 63.2 cm/sec TR max P.2 mmHg MV E/A: 0.83 PA V2 max: 69.3 cm/sec Med Peak E' Aldo: 5.6 cm/sec PA V2 mean: 48.9 cm/sec E/E' med: 9.3 PA mean P.1 mmHg Lat Peak E' Aldo: 5.2 cm/sec PA pr(Accel): 37.9 mmHg E/E' lat: 10.2 E/e' average: 9.7 MV dec time: 0.24 sec Reading Physician:05:09 PM
--- NOTE | 2023-03-19 14:58 | DI.DEXA.S_ITS ---
Bone Density Report Name: EDVIN FERNANDEZ Age: 82 Sex: Female Ethnicity: White Date of : 1940 Indication: osteopenia; Referring Provider: CHAPO OLMEDO Study: Bone densitometry was performed. Exam Date: March 19, 2023 Accession number: [id number] Bone Density: Region BMD T-score Z-score Classification AP Spine(L2, L3) 1.074 0.1 3.0 Normal Femoral Neck (Left) 0.576 -2.5 0.1 Osteoporosis Total Hip (Left) 0.552 -3.2 -0.9 Osteoporosis Femoral Neck (Right) 0.659 -1.7 0.8 Osteopenia Total Hip (Right) 0.641 -2.5 -0.1 Osteoporosis Total Hip Mean 0.597 -2.9 -0.5 Osteoporosis World Health Organization criteria for BMD impression classify patients as: Normal (T-score at or above -1.0), Osteopenia (T-score between -1.0 and -2.5), or Osteoporosis (T-score at or below -2.5). 10-year Fracture Risk: FRAX not reported because: Some T-score for Spine Total or Hip Total or Femoral Neck at or below -2.5 Previous Exams: -- Region Exam Age BMD T-score BMD Change BMD Change Date g/cm2 vs Baseline vs Previous -- AP Spine (L2-L3) 03/19/2023 82 1.074 0.1 0.002 (0.2%)# 0.002 (0.2%)# 08/03/2020 80 1.071 0.1 Total Hip(Right) 03/19/2023 82 0.641 -2.5 -0.035 (-5.2%)# -0.035 (-5.2%)# 08/03/2020 80 0.676 -2.2 -- *Denotes significance at 95% confidence level, LSC for AP Spine = 0.022 g/cm2, LSC for Total Hip = 0.027 g/cm2 # Denotes dissimilar scan types or analysis methods Impression: The patient has osteoporosis, based on the Left Total Hip T-score. No significant bone loss was observed. Discussion: INCREASED RISK OF FRACTURE. BONE DENSITY IS UNDESIRABLY LOW AT ONE OR MORE SKELETAL SITES, CONSISTENT WITH POSTMENOPAUSAL OSTEOPOROSIS. This patient's lowest T-score meets the World Health Organization's (WHO) criteria for osteoporosis at one or more sites (T-score -2.5 or below). In untreated patients, the risk of osteoporotic fracture increases approximately two-fold for each 1.0 SD decrease in T-score. Low bone density is not the only risk factor for fracture; also consider factors such as patient's age, frailty or poor health, risk of falling, risk of injury, previous osteoporotic fracture, family history of osteoporosis, cigarette smoking, low body weight, etc. Not everyone with low bone mineral density has osteoporosis; osteomalacia and other metabolic bone disorders should also be considered. Patients who have osteoporosis should be evaluated for specific diseases and conditions (secondary causes) that may cause or contribute to bone loss. The [place] [employer]ocrinologists (AACE) and National Osteoporosis Foundation (NOF) recommend pharmacologic intervention for all postmenopausal women whose T-score is in this range. The patient should follow a healthful lifestyle (good nutrition with adequate calcium and vitamin D, and appropriate weight-bearing exercise). Follow-Up: Consider a repeat BMD and Vertebral Fracture Assessment (VFA) exam in 2 years or sooner if medically necessary, to reassess this patient's status. Reported by: SOWMYA TRAVIS M.D. on 03/19/2023 3:06:00 PM.
== END ==
PROVIDERS: PCP Nurse Practitioner; Referring Provider Nurse Practitioner; Visit Provider Nurse Practitioner
DX: I08.3 Combined rheumatic disorders of mitral, aortic and tricuspid valves (principal); M81.0 Age-related osteoporosis without current pathological fracture; I10 Essential (primary) hypertension
CPT/HCPCS: 77080; 93306

== ENCOUNTER → 2023-03-21 07:39 | Outpatient (CLI) | payer MEDICARE, OTHER, SELFPAY ==
[2022-04-21 10:41] VITALS: BMI 20.9
[2023-03-21 10:04] LABS: Alanine Aminotransferase 20 IU/L (<35); Albumin 4.1 g/dL (3.5-5.0); Albumin Globulin Ratio 1.3 (1.0-2.8); Alkaline Phosphatase 146 U/L (38-126); Aspartate Aminotransferase 33 IU/L (14-36); BUN Creatinine Ratio 23.7 (6-22); Bilirubin Total 0.5 mg/dL (0.2-1.3); Blood Urea Nitrogen 18 mg/dL (7-17); Calcium 9.3 mg/dL (8.4-10.2); Carbon Dioxide 30 mmol/L (22-32); Chloride 102 mmol/L (98-107); Cholesterol 184 mg/dL (140-199); Estimated Glomerular Filt Rate > 60 mL/min (>60); Globulin 3.1 g/dL (1.7-4.1); Glucose 99 mg/dL (80-110); HDL Cholesterol 86 mg/dL (40-60); HEMOLYSIS < 15 (0-50); LDL Cholesterol Calculated 83 mg/dL (<100); Potassium 4.6 mmol/L (3.4-5.1); Sodium 137 mmol/L (137-145); Total Protein 7.2 g/dL (6.3-8.2); Triglycerides 74 mg/dL (35-150)
== END ==
PROVIDERS: PCP Nurse Practitioner; Referring Provider Nurse Practitioner; Visit Provider Nurse Practitioner
DX: I10 Essential (primary) hypertension (principal); E78.5 Hyperlipidemia, unspecified; R79.89 Other specified abnormal findings of blood chemistry
CPT/HCPCS: 36415; 80053; 80061; 93005

== ENCOUNTER → 2023-07-27 08:22 | Outpatient (CLI) | payer MEDICARE, OTHER, SELFPAY ==
[2022-04-21 10:41] VITALS: BMI 20.9
[2023-07-27 09:34] LABS: Cholesterol 167 mg/dL (140-199); HDL Cholesterol 70 mg/dL (40-60); LDL Cholesterol Calculated 81 mg/dL (<100); Triglycerides 79 mg/dL (35-150)
== END ==
PROVIDERS: Family Provider Nurse Practitioner; PCP Nurse Practitioner; Referring Provider Nurse Practitioner; Visit Provider Nurse Practitioner
DX: E78.5 Hyperlipidemia, unspecified (principal); I70.0 Atherosclerosis of aorta
CPT/HCPCS: 36415; 80061

== ENCOUNTER → 2023-08-01 16:00 | Outpatient (CLI) | payer MEDICARE, OTHER, SELFPAY ==
[2022-04-21 10:41] VITALS: BMI 20.9
[2023-08-01 17:22] LABS: Appearance Urine UA CLOUDY; Bilirubin Urine UA NEGATIVE (NEGATIVE); Color Urine UA YELLOW; Glucose Urine UA NEGATIVE (Negative); Ketones Urine UA TRACE (NEGATIVE); Leukocyte Esterase Urine UA 3+ (NEGATIVE); Nitrite Urine UA POSITIVE (Negative); Occult Blood Urine UA 1+ (Negative); Protein Urine UA 1+ (Negative); Urobilinogen Urine UA 0.2 E.U./dL (0.2)
[2023-08-01 17:43] LABS: Bacteria Urine Many (>30); RBC Urine 1-5/HPF (0-5/HPF); WBC Urine 30-100/HPF (0-5/HPF)
[2023-08-01 17:44] LABS: Culture Indicated Urine Specimen Cultured; Squamous Epithelial Cell Urine 0-1 /HPF (0-5/HPF)
== END ==
PROVIDERS: Family Provider Nurse Practitioner; PCP Nurse Practitioner; Referring Provider Nurse Practitioner; Visit Provider Nurse Practitioner
DX: N39.0 Urinary tract infection, site not specified (principal)
CPT/HCPCS: 81001; 87077; 87086; 87186

== ENCOUNTER → 2023-09-05 13:26 | Outpatient (CLI) | payer MEDICARE, OTHER, SELFPAY ==
[2022-04-21 10:41] VITALS: BMI 20.9
== END ==
PROVIDERS: Family Provider Nurse Practitioner; PCP Nurse Practitioner; Visit Provider Family Medicine
DX: R82.998 Other abnormal findings in urine (principal); R30.0 Dysuria
CPT/HCPCS: 87086

== ENCOUNTER → 2023-10-03 15:33 | Outpatient (CLI) | payer MEDICARE, OTHER, SELFPAY ==
[2022-04-21 10:41] VITALS: BMI 20.9
[2023-10-03 18:02] LABS: BUN Creatinine Ratio 23.5 (6-22); Blood Urea Nitrogen 16 mg/dL (7-17); Calcium 9.7 mg/dL (8.4-10.2); Carbon Dioxide 28 mmol/L (22-32); Chloride 100 mmol/L (98-107); Estimated Glomerular Filt Rate > 60 mL/min (>60); Glucose 88 mg/dL (80-110); HEMOLYSIS < 15 (0-50); Potassium 4.2 mmol/L (3.4-5.1); Sodium 136 mmol/L (137-145)
[2023-10-03 18:27] LABS: Appearance Urine UA CLEAR; Bilirubin Urine UA NEGATIVE (NEGATIVE); Color Urine UA YELLOW; Glucose Urine UA NEGATIVE (Negative); Ketones Urine UA NEGATIVE (NEGATIVE); Leukocyte Esterase Urine UA NEGATIVE (NEGATIVE); Nitrite Urine UA NEGATIVE (Negative); Occult Blood Urine UA NEGATIVE (Negative); Protein Urine UA NEGATIVE (Negative); Urobilinogen Urine UA 0.2 E.U./dL (0.2)
[2023-10-03 18:42] LABS: Bacteria Urine None Seen; Culture Indicated Urine Cult Not Indicated; RBC Urine None Seen (0-5/HPF); Squamous Epithelial Cell Urine None Seen (0-5/HPF); Urine Volume 10mL (spun); WBC Urine None Seen (0-5/HPF)
== END ==
PROVIDERS: Family Provider Nurse Practitioner; PCP Nurse Practitioner; Referring Provider Nurse Practitioner; Visit Provider Nurse Practitioner
DX: Z01.812 Encounter for preprocedural laboratory examination (principal); N39.0 Urinary tract infection, site not specified
CPT/HCPCS: 36415; 80048; 81001

== ENCOUNTER → 2024-03-26 14:30 | Outpatient (CLI) | payer MEDICARE, OTHER, SELFPAY ==
[2022-04-21 10:41] VITALS: BMI 20.9
[2024-03-26 15:43] LABS: Add Manual Diff / Slide Review NO; Basophils Absolute Auto 0 /uL (0-100); Basophils Percent Auto 0.2 % (0-2); Eosinophils Absolute Auto 100 /uL (0-450); Eosinophils Percent Auto 0.4 % (2-4); Hematocrit 45.2 % (36-46); Hemoglobin 15.1 g/dL (12.0-16.0); Lymphocytes Absolute Auto 1500 /uL (1100-4500); Lymphocytes Percent Auto 9.9 % (25-40); Mean Corpuscular HGB Conc 33.4 % (30-36); Mean Corpuscular Hemoglobin 31.5 PG (26-34); Mean Corpuscular Volume 94.2 fL (80-100); Monocytes Absolute Auto 1000 /uL (0-900); Monocytes Percent Auto 6.1 % (3-14); Neutrophils Absolute Auto 13000 /uL (1500-7000); Neutrophils Percent Auto 83.4 % (50-75); Platelet Count 252 X10^3/uL (150-400); Red Blood Cell Count 4.79 X10^6/uL (4.0-5.2); Red Cell Distribution Width 13.8 % (11.6-14.8); White Blood Cell Count 15.6 X10^3/uL (4.5-11.0)
[2024-03-26 15:47] LABS: Creatinine Urine Random 78.74 mg/dL
[2024-03-26 16:02] LABS: Alanine Aminotransferase 19 IU/L (<35); Albumin 4.2 g/dL (3.5-5.0); Albumin Globulin Ratio 1.2 (1.0-2.8); Alkaline Phosphatase 136 U/L (38-126); Aspartate Aminotransferase 36 IU/L (14-36); Bilirubin Total 0.7 mg/dL (0.2-1.3); Blood Urea Nitrogen 20 mg/dL (7-17); Calcium 9.4 mg/dL (8.4-10.2); Carbon Dioxide 22 mmol/L (22-32); Chloride 102 mmol/L (98-107); Cholesterol 188 mg/dL (140-199); Estimated Glomerular Filt Rate > 60 mL/min (>60); Globulin 3.4 g/dL (1.7-4.1); Glucose 95 mg/dL (80-110); HDL Cholesterol 94 mg/dL (40-60); HEMOLYSIS < 15 (0-50); LDL Cholesterol Calculated 77 mg/dL (<100); Potassium 4.2 mmol/L (3.4-5.1); Sodium 132 mmol/L (137-145); Total Protein 7.6 g/dL (6.3-8.2); Triglycerides 86 mg/dL (35-150)
[2024-03-26 16:13] LABS: Microalbumin Urine Random 96.2 mg/dL (0-1.6)
[2024-03-26 16:15] LABS: Free T3, Triiodothyronine Free 3.54 pg/mL (2.77-5.27); Free T4, Direct Thyroxine 0.86 ng/dL (0.78-2.19)
[2024-03-26 16:29] LABS: Thyroid Stimulating Hormone 3.21 uIU/mL (0.47-4.68)
== END ==
PROVIDERS: Family Provider Nurse Practitioner; PCP Nurse Practitioner; Referring Provider Nurse Practitioner; Visit Provider Nurse Practitioner
DX: E78.5 Hyperlipidemia, unspecified (principal); I70.0 Atherosclerosis of aorta; M81.0 Age-related osteoporosis without current pathological fracture; R53.83 Other fatigue; R79.89 Other specified abnormal findings of blood chemistry; I10 Essential (primary) hypertension; Z79.899 Other long term (current) drug therapy
CPT/HCPCS: 36415; 80053; 80061; 82043; 82570; 84439; 84443; 84481; 85025

== ENCOUNTER → 2024-03-28 10:07 | Outpatient (CLI) | payer MEDICARE, OTHER, SELFPAY ==
[2024-03-27 16:37] VITALS: BMI 20.9
== END ==
PROVIDERS: Family Provider Nurse Practitioner; PCP Nurse Practitioner; Referring Provider Family Medicine; Visit Provider Family Medicine
DX: N39.0 Urinary tract infection, site not specified (principal)
CPT/HCPCS: 87077; 87086; 87186

== ENCOUNTER → 2024-04-11 14:46 | Outpatient (CLI) | payer MEDICARE, OTHER, SELFPAY ==
[2024-03-27 16:37] VITALS: BMI 20.9
--- NOTE | 2024-04-11 14:47 | DI.CT.S_ITS ---
PROCEDURE: CT SINUS SCREEN WO CON INDICATIONS: chronic sinusitus TECHNIQUE: Noncontrast 3.0 mm axial images acquired from the frontal sinuses to the mid-sella, with coronal and sagittal reformats. For radiation dose reduction, the following was used: automated exposure control, adjustment of mA and/or kV according to patient size. COMPARISON: None. FINDINGS: Image quality: Excellent. Sinuses: No fluid levels, mucous retention cysts or polyps. Very minimal trace maxillary sinus mucosal thickening. Ostiomeatal Complexes: Ostiomeatal complexes are patent. Miscellaneous: Visualized intra-orbital contents are normal. No dov bullosa. Prominent rightward nasal septal deviation. Paradoxical bilateral middle turbinates are present. There is hypertrophy of the inferior turbinates in relation to the middle turbinates. IMPRESSION: Prominent septal deviation. Minimal maxillary sinus mucosal thickening. Dictated by: Gayathri Calle M.D. on 04/14/2024 at 12:09 Approved by: Gayathri Calle M.D. on 04/14/2024 at 12:12
== END ==
LOC: CT 14:47
PROVIDERS: Family Provider Nurse Practitioner; PCP Nurse Practitioner; Referring Provider Nurse Practitioner; Visit Provider Nurse Practitioner
DX: J32.9 Chronic sinusitis, unspecified (principal); J34.2 Deviated nasal septum
CPT/HCPCS: 70486

== ENCOUNTER → 2024-04-23 13:18 | Outpatient (CLI) | payer MEDICARE, OTHER, SELFPAY ==
[2024-03-27 16:37] VITALS: BMI 20.9
== END ==
PROVIDERS: Family Provider Nurse Practitioner; PCP Nurse Practitioner; Referring Provider Nurse Practitioner; Visit Provider Nurse Practitioner
DX: R55 Syncope and collapse (principal); R42 Dizziness and giddiness
CPT/HCPCS: 93242; 93244

== ENCOUNTER → 2024-04-30 16:47 | Outpatient (CLI) | payer MEDICARE, OTHER, SELFPAY ==
[2024-03-27 16:37] VITALS: BMI 20.9
[2024-04-30 18:03] LABS: Alanine Aminotransferase 17 IU/L (<35); Albumin 4.1 g/dL (3.5-5.0); Albumin Globulin Ratio 1.2 (1.0-2.8); Alkaline Phosphatase 141 U/L (38-126); Aspartate Aminotransferase 38 IU/L (14-36); BUN Creatinine Ratio 25.7 (6-22); Bilirubin Total 0.5 mg/dL (0.2-1.3); Blood Urea Nitrogen 18 mg/dL (7-17); Calcium 9.4 mg/dL (8.4-10.2); Carbon Dioxide 26 mmol/L (22-32); Chloride 101 mmol/L (98-107); Estimated Glomerular Filt Rate > 60 mL/min (>60); Globulin 3.4 g/dL (1.7-4.1); Glucose 99 mg/dL (80-110); HEMOLYSIS 18 (0-50); Potassium 4.1 mmol/L (3.4-5.1); Sodium 133 mmol/L (137-145); Total Protein 7.5 g/dL (6.3-8.2)
== END ==
LOC: LAB 16:48
PROVIDERS: Family Provider Nurse Practitioner; PCP Nurse Practitioner; Referring Provider Nurse Practitioner; Visit Provider Nurse Practitioner
DX: Z01.812 Encounter for preprocedural laboratory examination (principal); M81.0 Age-related osteoporosis without current pathological fracture
CPT/HCPCS: 36415; 80053

== ENCOUNTER → 2024-06-21 08:15 | Outpatient (CLI) | payer MEDICARE, OTHER, SELFPAY ==
[2024-03-27 16:37] VITALS: BMI 20.9
--- NOTE | 2024-06-21 08:17 | DI.RAD.S_ITS ---
PROCEDURE: XR CHEST 2V INDICATIONS: Cough TECHNIQUE: 2 views of the chest were acquired. COMPARISON: [facility], CR, XR CHEST 2V, 05/19/2019, 15:22. FINDINGS: Surgical changes and devices: None. Lungs and pleura: Patchy left basilar and middle lung zone nodular opacities. Questionable nodule in the right upper lung zone. Diffuse interstitial markings. Mediastinum: Mediastinal contours are normal. Heart size is normal. Bones and chest wall: No suspicious bony abnormalities. Soft tissues appear unremarkable. IMPRESSION: Diffuse interstitial markings, which may indicate atypical infection or pulmonary edema, less likely interstitial lung disease. Patchy nodularity in the left mid and lower lung zone and questionable nodule in the right middle lung zone. Differential includes infection, less likely malignancy. Recommend low-dose chest CT for complete characterization. Dictated by: Prashanth Haney M.D. on 06/21/2024 at 11:17 Approved by: Prashanth Haney M.D. on 06/21/2024 at 11:18
== END ==
LOC: RAD 08:17
PROVIDERS: Family Provider Nurse Practitioner; PCP Nurse Practitioner Family; Referring Provider Nurse Practitioner Family; Visit Provider Nurse Practitioner Family
DX: R05.9 Cough, unspecified (principal)
CPT/HCPCS: 71046

== ENCOUNTER → 2024-06-26 09:03 | Outpatient (CLI) | payer MEDICARE, OTHER, SELFPAY ==
[2024-03-27 16:37] VITALS: BMI 20.9
[2024-06-26 10:20] LABS: COVID-19 CEPHEID 4-PLEX PCR Negative (Negative); Influenza A - CEPHEID Flu A NEGATIVE (NEGATIVE); Influenza B - CEPHEID Flu B NEGATIVE (NEGATIVE); Respiratory Syncytial Virus Negative (Negative)
== END ==
PROVIDERS: Family Provider Nurse Practitioner; PCP Nurse Practitioner Family; Visit Provider Nurse Practitioner Family
DX: J18.9 Pneumonia, unspecified organism (principal); R05.1 Acute cough
CPT/HCPCS: 0241U

== ENCOUNTER → 2024-06-30 09:16 | Outpatient (CLI) | payer MEDICARE, OTHER, SELFPAY ==
[2024-03-27 16:37] VITALS: BMI 20.9
--- NOTE | 2024-06-30 09:17 | DI.CT.S_ITS ---
PROCEDURE: CT CHEST WO CON INDICATIONS: f/u pulmonary nodules TECHNIQUE: Noncontrast 5 mm thick sections acquired from the pulmonary apices to the posterior costophrenic angles. 1 mm lung window, 5 mm thick coronal and sagittal and 7 mm axial MIP reformats were then acquired. For radiation dose reduction, the following was used: automated exposure control, adjustment of mA and/or kV according to patient size. COMPARISON: [facility], CR, XR CHEST 2V, 06/21/2024, 8:20. FINDINGS: Image quality: Diagnostic. Lower Neck: No visible adenopathy. Thyroid: Normal CT appearance. Axillae: No enlarged lymph nodes. Chest Wall: No suspicious chest wall mass. Severe compression fracture of T12 with retropulsion of posterior fragment causing [id number] central canal narrowing. No other bone lesions or fractures. Heart: Heart size is normal. No pericardial effusion. Heavy coronary artery calcification versus stent placement. Thoracic Vessels: The aorta and pulmonary arteries demonstrate normal size. Moderate aortic calcification. Mediastinum and Jennifer: No enlarged lymph nodes. Esophagus: No wall thickening. Tiny hiatal hernia. Lungs and Pleura: Moderate centrilobular and paraseptal emphysematous change. Coarsening of interstitial markings and mild traction bronchiectasis in the anterior upper lobes bilaterally, and scattered areas of patchy peripheral airspace consolidation and bronchiectasis in the left lower lobe. There are slight air bronchograms in a few patchy consolidations. A few discrete round nodules are seen in the subpleural lateral left lower lobe, specifically 3/64 measuring five and 6 mm respectively. No significant bronchial wall thickening. No pleural effusions or pleural calcification. Upper Abdomen: Visualized upper abdomen solid organs and bowel loops appear normal. IMPRESSION: Picture of potentially acute on chronic lung disease with patchy small airspace opacities in the left mid and lower lung with air bronchograms, probably infectious. Scattered areas bronchiectasis and interstitial markings superimposed on emphysema are likely components of a chronic interstitial lung disease. Left lower lobe lung nodules measuring 0.5 and 0.6 cm. These are nonspecific and six-month follow-up chest CT is recommended to begin to establish stability. Severe T12 compression fracture with central canal narrowing at this level. Correlate with history and symptoms. Coronary artery calcification. Dictated by: Kat Carbajal M.D. on 06/30/2024 at 13:52 Approved by: Kat Carbajal M.D. on 06/30/2024 at 14:06
== END ==
LOC: CT 09:17
PROVIDERS: Family Provider Nurse Practitioner; PCP Nurse Practitioner Family; Referring Provider Nurse Practitioner Family; Visit Provider Nurse Practitioner Family
DX: J47.9 Bronchiectasis, uncomplicated (principal); J43.9 Emphysema, unspecified; R91.8 Other nonspecific abnormal finding of lung field; M48.54XA Collapsed vertebra, not elsewhere classified, thoracic region, initial encounter for fracture; I25.10 Atherosclerotic heart disease of native coronary artery without angina pectoris; M48.04 Spinal stenosis, thoracic region
CPT/HCPCS: 71250

== ENCOUNTER → 2024-08-25 13:39 | Outpatient (CLI) | payer MEDICARE, OTHER, SELFPAY ==
[2024-03-27 16:37] VITALS: BMI 20.9
== END ==
PROVIDERS: Family Provider Nurse Practitioner; PCP Nurse Practitioner Family; Referring Provider Student in an Organized Health Care Education/Training Program; Visit Provider Student in an Organized Health Care Education/Training Program
DX: R05.9 Cough, unspecified (principal); Z87.891 Personal history of nicotine dependence; R94.2 Abnormal results of pulmonary function studies; Z87.01 Personal history of pneumonia (recurrent); R93.89 Abnormal findings on diagnostic imaging of other specified body structures
CPT/HCPCS: 94060; 94726; 94729

== ENCOUNTER → 2024-10-02 12:44 | Outpatient (CLI) | payer MEDICARE, OTHER, SELFPAY ==
[2024-03-27 16:37] VITALS: BMI 20.9
[2024-10-02 14:08] LABS: BUN Creatinine Ratio 16.7 (6-22); Blood Urea Nitrogen 12 mg/dL (7-17); Calcium 9.8 mg/dL (8.4-10.2); Carbon Dioxide 28 mmol/L (22-32); Chloride 99 mmol/L (98-107); Estimated Glomerular Filt Rate > 60 mL/min (>60); Glucose 90 mg/dL (80-110); HEMOLYSIS < 15 (0-50); Potassium 4.1 mmol/L (3.4-5.1); Sodium 134 mmol/L (137-145)
== END ==
LOC: LAB 12:46
PROVIDERS: Family Provider Nurse Practitioner; PCP Nurse Practitioner Family; Referring Provider Nurse Practitioner Family; Visit Provider Nurse Practitioner Family
DX: M81.0 Age-related osteoporosis without current pathological fracture (principal); R30.0 Dysuria
CPT/HCPCS: 36415; 80048; 87077; 87086; 87186

== ENCOUNTER → 2024-10-06 14:09 | Outpatient (CLI) | payer MEDICARE, OTHER, SELFPAY ==
[2024-03-27 16:37] VITALS: BMI 20.9
[2024-10-06 15:04] LABS: Phosphorous 3.4 mg/dL (2.8-4.1)
[2024-10-06 15:21] LABS: Vitamin D 25 Hydroxy (D3) 26.2 ng/mL (30.0-100.0)
== END ==
PROVIDERS: Family Provider Nurse Practitioner; PCP Nurse Practitioner Family; Referring Provider Nurse Practitioner Family; Visit Provider Nurse Practitioner Family
DX: M81.0 Age-related osteoporosis without current pathological fracture (principal)
CPT/HCPCS: 36415; 82306; 83735; 84100

== ENCOUNTER → 2024-10-29 12:34 | Outpatient (CLI) | payer MEDICARE, OTHER, SELFPAY ==
[2024-03-27 16:37] VITALS: BMI 20.9
--- NOTE | 2024-10-29 12:36 | DI.CT.S_ITS ---
PROCEDURE: CT CHEST WO CON INDICATIONS: Evaluate for improvement of previous abnormal CT TECHNIQUE: Noncontrast 2.0-2.5 mm thick sections acquired from the pulmonary apices to the posterior costophrenic angles. 7 mm thick axial MIP and 5 mm coronal and sagittal reformats were then acquired. For radiation dose reduction, the following was used: automated exposure control, adjustment of mA and/or kV according to patient size. COMPARISON: [facility], CT, CT CHEST WO CON, 06/30/2024, 9:23. FINDINGS: Image quality: Diagnostic. Lower Neck: No enlarged lymph nodes. Thyroid: No thyroid nodules which require sonographic follow up, per consensus guidelines. Axillae: No enlarged lymph nodes. Chest Wall: Unremarkable. Bones: Unremarkable. Lungs and Pleura: No pneumothorax or pleural effusions. Very severe COPD is present. An area of alveolar infiltration and nodular opacification at the posterolateral left lower lobe has evolved, and discrete internal nodules are not currently seen. Persistent consolidative mild airspace disease is patchy in this area. A new change, however, is seen at the right lower lung where the major fissure appears slightly retracted posteriorly associated with a mildly spiculated structure that involves the medial major fissure best seen on series 3, image 203. This measures up to 1 cm including the suspected area of spiculation. Heart: Heart size is normal. No pericardial effusion. Thoracic Vessels: The aorta and pulmonary arteries demonstrate normal size. Mediastinum and Jennifer: No enlarged lymph nodes. Esophagus: No wall thickening. No hiatal hernia. Upper Abdomen: Visualized upper abdomen solid organs and bowel loops appear normal. IMPRESSION: Very severe COPD. Multifocal areas of alveolar airspace disease have developed and resolved in this patient over time. An area of nodular concern posterolateral left lower lobe appears slightly less suspicious but a new area of focal radiodensity with spiculation has developed at the right lower lung at the medial major fissure. This should be followed in [address] It could represent new development of a malignancy in an area previously normal 06/30/24 but is considered more likely inflammatory in origin. Fleischner Society criteria for SOLID lung nodule followup. Nodule size (mm)Low-risk patientHigh-risk patient<6 (single or multiple)No routine followup.Optional CT at 12 months. 6-8 (single or multiple)CT at 6-12 months, then optional CT at 18-24 mo.CT at 6-12 months, then CT at 18-24 months. >8 (single)CT at 3 months, PET-CT, or biopsy. Same as for low-risk pts. >8 (multiple)CT at 3-6 months, then optional CT at 18-24 mo.CT at 3-6 months, then CT at 18-24 months. Fleischner Society criteria for SUB-SOLID lung nodule followup. Solitary pure ground-glass nodules<6 mm (ground glass or part solid)No followup needed. 6 mm or larger (ground glass)CT at 6-12 months to confirm persistence, then CT every 2 years until 5 years.6 mm or larger (part solid)CT at 3-6 months to confirm persistence, then annual CT until 5 years if unchanged and solid component remains <6 mm. Multiple sub-solid nodules<6 mmCT at 3-6 months, then CT consider at 2 & 4 years for high risk patients. [address] at 3-6 months. Subsequent management based on most suspicious lesions. Recommendations do not apply to lung cancer screening, patients with immunosuppression, or patients with known primary cancer. Dictated by: Manny Elliott M.D. on 10/30/2024 at 9:20 Approved by: Manny Elliott M.D. on 10/30/2024 at 9:29
== END ==
PROVIDERS: Family Provider Nurse Practitioner; PCP Nurse Practitioner Family; Referring Provider Student in an Organized Health Care Education/Training Program; Visit Provider Student in an Organized Health Care Education/Training Program
DX: R93.89 Abnormal findings on diagnostic imaging of other specified body structures (principal); J44.9 Chronic obstructive pulmonary disease, unspecified
CPT/HCPCS: 71250

== ENCOUNTER → 2024-11-24 15:03 | Outpatient (CLI) | payer MEDICARE, OTHER, SELFPAY ==
[2024-03-27 16:37] VITALS: BMI 20.9
== END ==
PROVIDERS: PCP Nurse Practitioner Family; Visit Provider Family Medicine
DX: R30.0 Dysuria (principal)
CPT/HCPCS: 87086

== ENCOUNTER → 2025-01-13 15:31 | Outpatient (CLI) | payer MEDICARE, OTHER, SELFPAY ==
[2024-03-27 16:37] VITALS: BMI 20.9
== END ==
PROVIDERS: PCP Nurse Practitioner Family; Visit Provider Nurse Practitioner Family
DX: R30.0 Dysuria (principal)
CPT/HCPCS: 87077; 87086; 87186

== ENCOUNTER → 2025-01-24 07:28 | Outpatient (CLI) | payer MEDICARE, OTHER, SELFPAY ==
[2024-03-27 16:37] VITALS: BMI 20.9
== END ==
PROVIDERS: PCP Nurse Practitioner Family; Visit Provider Nurse Practitioner Family
DX: R30.0 Dysuria (principal)
CPT/HCPCS: 87077; 87086; 87186

== ENCOUNTER → 2025-02-05 11:44 | Outpatient (CLI) | payer MEDICARE, OTHER, SELFPAY ==
[2024-03-27 16:37] VITALS: BMI 20.9
[2025-02-05 13:44] LABS: Appearance Urine UA CLEAR; Bilirubin Urine UA NEGATIVE (NEGATIVE); Color Urine UA YELLOW; Glucose Urine UA NEGATIVE (Negative); Ketones Urine UA NEGATIVE (NEGATIVE); Leukocyte Esterase Urine UA NEGATIVE (NEGATIVE); Nitrite Urine UA NEGATIVE (Negative); Occult Blood Urine UA NEGATIVE (Negative); Protein Urine UA NEGATIVE (Negative); Urobilinogen Urine UA 0.2 E.U./dL (0.2)
[2025-02-05 13:46] LABS: pH Urine UA 6.5 (4.5-8.0)
[2025-02-05 14:33] LABS: Bacteria Urine None Seen; Culture Indicated Urine Cult Not Indicated; RBC Urine None Seen (0-5/HPF); Squamous Epithelial Cell Urine 0-1 /HPF (0-5/HPF); Urine Volume 10mL (spun); WBC Urine 1-5/HPF (0-5/HPF)
== END ==
PROVIDERS: PCP Nurse Practitioner Family; Referring Provider Nurse Practitioner Family; Visit Provider Nurse Practitioner Family
DX: R30.0 Dysuria (principal)
CPT/HCPCS: 81001

== ENCOUNTER → 2025-02-17 13:49 | Outpatient (CLI) | payer MEDICARE, OTHER, SELFPAY ==
[2024-03-27 16:37] VITALS: BMI 20.9
[2025-02-17 16:58] LABS: Appearance Urine UA CLEAR; Bilirubin Urine UA NEGATIVE (NEGATIVE); Color Urine UA YELLOW; Glucose Urine UA NEGATIVE (Negative); Ketones Urine UA NEGATIVE (NEGATIVE); Leukocyte Esterase Urine UA NEGATIVE (NEGATIVE); Nitrite Urine UA NEGATIVE (Negative); Occult Blood Urine UA NEGATIVE (Negative); Protein Urine UA NEGATIVE (Negative)
[2025-02-17 17:35] LABS: Bacteria Urine None Seen; Culture Indicated Urine Cult Not Indicated; RBC Urine 0-1/HPF (0-5/HPF); Squamous Epithelial Cell Urine 0-1 /HPF (0-5/HPF); Urine Volume 10mL (spun); WBC Urine 0-1/HPF (0-5/HPF)
== END ==
PROVIDERS: PCP Nurse Practitioner Family; Visit Provider Obstetrics & Gynecology Gynecology
DX: N32.81 Overactive bladder (principal); N39.41 Urge incontinence; N39.0 Urinary tract infection, site not specified
CPT/HCPCS: 81001

== ENCOUNTER → 2025-03-23 12:43 | Outpatient (CLI) | payer MEDICARE, OTHER, SELFPAY ==
[2024-03-27 16:37] VITALS: BMI 20.9
--- NOTE | 2025-03-23 12:44 | DI.RAD.S_ITS ---
PROCEDURE: XR DEXA AXIAL SKELETON INDICATIONS: asymptomatic age related postmenopausal state COMPARISON: [facility], , XR DEXA AXIAL SKELETON, 03/19/2023, 14:58. [facility], , XR DEXA AXIAL SKELETON, 08/03/2020, 13:01. FINDINGS: Lumbar Spine: Bone mineral density 1.14 g/cm2, T score 0.8,. Right Femoral Neck: Bone mineral density 0.63 g/cm2, T score -1.9, previously -1.7. Right Hip: Bone mineral density 0.64 g/cm2, T score -2.5, similar to prior. Fracture Risk Calculation (when applicable): Not applicable. Osteoporosis. (T score greater or equal to -1.0 to: NORMAL) (T score from -1.1 to -2.4: OSTEOPENIA) (T score less than or equal to -2.5: OSTEOPOROSIS) IMPRESSION: Osteoporosis Follow-up guidelines as follows: Osteoporosis: Consider a repeat DEXA and Vertebral Fracture Assessment (VFA) exam in 2 years or sooner if medically necessary, to reassess this patient's status. Osteopenia: Consider a repeat DEXA in 2-3 years to reassess this patient's status, or if there is a new clinical indication. Normal: Consider a repeat DEXA in 5 years or sooner, or if there is a new clinical indication. All treatment decisions require clinical judgment and consideration of individual patient factors, including patient preferences, comorbidities, previous drug use, risk factors not captured in the FRAX model (e.g., frailty, falls, vitamin D deficiency, increased bone turnover, interval significant decline in bone density ) and possible under- or over-estimation of fracture risk by FRAX. In addition, the NOF Guide recommends that FDA-approved medical therapies be considered in postmenopausal women and men age >= 50 years with a: * Hip or vertebral (clinical or morphometric) fracture * T-score of <=-2.5 at the spine or hip * Ten-year fracture probability by FRAX of >= 3% for hip fracture or >=20% for major osteoporotic fracture. Dictated by: Glen Paris M.D. on 03/23/2025 at 14:28 Approved by: Glen Paris M.D. on 03/23/2025 at 14:29
== END ==
PROVIDERS: PCP Nurse Practitioner Family; Referring Provider Nurse Practitioner Family; Visit Provider Nurse Practitioner Family
DX: M81.0 Age-related osteoporosis without current pathological fracture (principal); Z78.0 Asymptomatic menopausal state
CPT/HCPCS: 77080

== ENCOUNTER → 2025-04-08 08:36 | Outpatient (CLI) | payer MEDICARE, OTHER, SELFPAY ==
[2024-03-27 16:37] VITALS: BMI 20.9
[2025-04-08 09:13] LABS: Add Manual Diff / Slide Review NO; Hematocrit 42.6 % (36-46); Hemoglobin 14.2 g/dL (12.0-16.0); Lymphocytes Absolute Auto 1400 /uL (1100-4500); Mean Corpuscular HGB Conc 33.4 % (30-36); Mean Corpuscular Hemoglobin 31.2 PG (26-34); Mean Corpuscular Volume 93.5 fL (80-100); Platelet Count 249 X10^3/uL (150-400)
[2025-04-08 09:38] LABS: Alanine Aminotransferase 19 IU/L (<35); Albumin 3.8 g/dL (3.5-5.0); Albumin Globulin Ratio 1.2 (1.0-2.8); Alkaline Phosphatase 118 U/L (38-126); Blood Urea Nitrogen 15 mg/dL (7-17); Calcium 9.2 mg/dL (8.4-10.2); Carbon Dioxide 26 mmol/L (22-32); Chloride 102 mmol/L (98-107); Cholesterol 174 mg/dL (140-199); Estimated Glomerular Filt Rate > 60 mL/min (>60); Globulin 3.3 g/dL (1.7-4.1); Glucose 100 mg/dL (70-99); HDL Cholesterol 92 mg/dL (40-60); HEMOLYSIS < 15 (0-50); Potassium 4.2 mmol/L (3.4-5.1); Sodium 135 mmol/L (137-145); Total Protein 7.1 g/dL (6.3-8.2); Triglycerides 71 mg/dL (35-150)
[2025-04-08 09:53] LABS: Vitamin D 25 Hydroxy (D3) 34.6 ng/mL (30.0-100.0)
[2025-04-08 10:07] LABS: TSH w/ Reflex to FT4 3.27 uIU/mL (0.47-4.68)
== END ==
PROVIDERS: PCP Nurse Practitioner Family; Referring Provider Nurse Practitioner Family; Visit Provider Nurse Practitioner Family
DX: E78.2 Mixed hyperlipidemia (principal); R13.10 Dysphagia, unspecified; I10 Essential (primary) hypertension
CPT/HCPCS: 36415; 80053; 80061; 82306; 84443; 85025

== ENCOUNTER → 2025-05-22 15:34 | Outpatient (CLI) | payer MEDICARE, OTHER, SELFPAY ==
[2024-03-27 16:37] VITALS: BMI 20.9
== END ==
PROVIDERS: PCP Nurse Practitioner Family; Visit Provider Chiropractor
DX: N32.81 Overactive bladder (principal)
CPT/HCPCS: 87077; 87086; 87186

== ENCOUNTER 2025-07-03 12:13 | Day surgery (SDC) | payer MEDICARE, OTHER, SELFPAY ==
[2024-03-27 16:37] VITALS: BMI 20.9
[2025-07-03] VITALS (8 sets, daily range): BP systolic 106–180; BP diastolic 57–89; PULSE 63–80; RESP 15–24; TEMP 36.2–36.3; O2SAT 93–97
--- NOTE | 2025-07-03 | DI.RAD.S_ITS ---
PROCEDURE: XR CHEST 1V
--- NOTE | 2025-07-03 12:46 | P.HP_ITS ---
History of Present Illness
--- NOTE | 2025-07-03 12:46 | PM.HP.IH.1 ---
History of Present Illness History of Present Illness Date Patient Seen: 07/03/25 Time Patient Seen: 12:46 Chief complaint: EGD w/poss bx Narrative: Himanshu is an 85 year old woman with dysphagia. See the office note from April for details. [facility] Medical History (Updated 05/08/25 @ 13:36 by Ryne Yip MD) Osteoporosis Recurrent UTI OAB (overactive bladder) Urge incontinence Centrilobular emphysema Abnormal CT scan, chest Pneumonia Age-related osteoporosis without current pathological fracture Atherosclerosis of aortic arch Hyperlipidemia Fatigue Elevated liver function tests HTN (hypertension) History of CVA (cerebrovascular accident) Brain TIA Adverse effect of fluorouracil Rash and nonspecific skin eruption POLST (Physician Orders for Life-Sustaining Treatment) Elevated LFTs History of fracture History of Mohs micrographic surgery for skin cancer Venous stasis ulcer Uterine prolapse Syncope Incomplete bladder emptying Left femoral shaft fracture Depression Osteoarthritis (~2009) Transient ischemic attack (~2017) Fractures Carpal tunnel syndrome (~1999) Measles (~1947) Chicken pox (~1947) History of urinary incontinence (~2009) Frequent UTI (~2009) Skin cancer (~1989) Surgical History H/O umbilical hernia repair H/O arthroscopic knee surgery Status post repair of nerve History of right breast biopsy History of hysterectomy with bilateral oophorectomy History of skin graft Anesthesia History of carpal tunnel release (~1992) Broken femur (~2015) History of knee replacement (~2006) History of appendectomy (~1961) History of cholecystectomy (~1961) Family History Father History of heart disease Mother Mental health problem Brother Drug abuse Family/Other Cerebral aneurysm Social History household members: none Meds Home Medications and Allergies Home Medications ?Medication ?Instructions ?Recorded ?Confirmed ?Type glucosam 750 mg-chondroi 100 1 tab PO .QD #90 tabs 12/08/20 07/03/25 Rx mg-hyalur 1.65 mg-CF borate 108 mg tablet ([employer]) niacinamide 500 mg tablet 500 mg PO DAILY 08/30/21 07/03/25 History losartan 25 mg tablet 25 mg PO DAILY #90 tabs 10/02/24 07/03/25 Rx latanoprost 0.005 % eye drops drp EYE-BOTH 11/05/24 05/22/25 History budesonide-formoterol HFA 80 2 puff inhalation BID #10.2 grams 11/09/24 07/03/25 Rx mcg-4.5 mcg/actuation aerosol inhaler (Breyna) estradiol 0.01% (0.1 mg/gram) 1 g vaginal 3XW #42.5 grams 02/17/25 07/03/25 Rx vaginal cream (Estrace) omeprazole 20 mg capsule,delayed 20 mg PO DAILY #30 caps 04/15/25 07/03/25 Rx release calcium 600 mg (as carbonate)-vit 1 tab PO BID 05/15/25 07/03/25 History D3 10 mcg (400 unit)-minerals tablet Allergies Allergy/AdvReac Type Severity Reaction Status Date / Time codeine AdvReac Intermediate Nausea Verified 07/03/25 12:37 morphine AdvReac Intermediate Nausea Verified 07/03/25 12:37 Exam Const General: healthy appearing Assessment & Plan Assessment and plan (1) Dysphagia: Qualifiers: Dysphagia type: esophageal phase Qualified Code(s): R13.19 - Other dysphagia Status: Acute Plan Esophagogastroduodenoscopy with possible balloon dilation for dysphagia. Time-Based Coding :: [TOTAL MINUTES] spent with patient and on the chart (including review of chart, obtaining history, exam, reviewing outside data, placing orders, documenting exam and treatment plan, and counseling patient) on [DATE]. [employer]EE Infant Babysitter Document charge(s): No
[2025-07-03] MEDS: LACTATED RINGERS 1,000 ML 42 ML IV (12:48)
--- NOTE | 2025-07-03 13:43 | P.OP.EGD_ITS ---
Operative Date/Time/Diagnoses
--- NOTE | 2025-07-03 13:43 | PM.OP.EGD ---
Operative Date/Time/Diagnoses Date of procedure: 07/03/25 Time of procedure: 13:43 Pre-op diagnosis: Dysphagia Post-op diagnosis: same Procedure & Clinicians Study performed: Esophagogastroduodenoscopy Same procedure(s) as scheduled: Yes Surgeon: Ryne Yip Anesthesia Type: MAC +/- Procedure Notes Procedure in detail: Surgeon: Ryne Yip MD Anesthesia: Salma Vitale CRNA A timeout was performed. A bite blocked was placed. The patient was positioned in the left lateral decubitus position. Anesthesia was administered. The endoscope was inserted through the bite block and passed through the esophagus and stomach and into the duodenum. The duodenal mucosa appeared normal. The scope was withdrawn into the duodenal bulb and no abnormalities were seen. The scope was withdrawn into the stomach. No abnormalities were seen in the stomach. The scope was retroflexed and no hiatal hernia was seen. The scope was withdrawn into the esophagus and slight narrowing was noted in the distal esophagus. A balloon dilator was inserted and inflated to 15 mm. Balloon was deflated and removed. There were no lacerations to the esophageal mucosa noted. The remainder of the esophagus was normal. The scope was withdrawn. The patient was awakened and brought to recovery. Sedation time: 9 minutes Findings: Mild narrowing of the distal esophagus Estimated Blood Loss: 2 Complications: none Post-procedure Disposition: PACU
--- NOTE | 2025-07-03 13:59 | SUR.PHASEII ---
Pt woke from anesthesia with a very wet sounding cough, radha b/s crackles and scattered exp wheezing noted; notifed Tameka BUSINESS UNIT LEADER, CXR ordered
== END 2025-07-03 14:32 | disposition home or self-care (01) ==
PROVIDERS: PCP Nurse Practitioner Family; Referring Provider Nurse Practitioner Family; Visit Provider Surgery
PROC: 0DJ08ZZ Inspection of Upper Intestinal Tract, Via Natural or Artificial Opening Endoscopic (ICD-10-PCS; CPT 43249; principal; 2025-07-03 13:15)
DX: R13.10 Dysphagia, unspecified (principal); K22.2 Esophageal obstruction
CPT/HCPCS: 43249; 71045; J2704; J7120